=== PATIENT | male | born 1955 | race Caucasian/White ===

== ENCOUNTER 2023-10-18 13:55 | Observation (INO) | payer OTHER, SELFPAY ==
[2023-10-18] VITALS (9 sets, daily range): BP systolic 64–167; BP diastolic 49–81; PULSE 60–82; RESP 16–19; TEMP 36.5–36.9; O2SAT 92–98; BMI 28.8
--- NOTE | 2023-10-18 14:15 | XRR_ITS ---
PROCEDURE INFORMATION: Exam: XR Chest Exam date and time: 10/18/2023 2:51 PM Age: 67 years old Clinical indication: Dyspnea; Patient HX: PT reporting headache, dizziness, fall, unstable gait. PT reporting this has happened several times before but is visiting family and they made him come in. ; Additional info: Dyspnea/cough TECHNIQUE: Imaging protocol: Radiologic exam of the chest. Views: 1 view. COMPARISON: No relevant prior studies available. FINDINGS: Lungs: No focal consolidation. Pleural spaces: No evidence of pneumothorax. No evidence of pleural effusion. Heart/Mediastinum: Cardiomediastinal silhouette is within normal limits. Bones/joints: No evidence of acute osseous abnormality. XR/XR chest 1V portable [id number] IMPRESSION: 1. No acute cardiopulmonary abnormality.
--- NOTE | 2023-10-18 14:16 | ECG_ITS ---
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 Measurements Intervals [place] Rate: 61 P: 71 VT: 211 QRS: 1 QRSD: 103 T: 35 QT: 400 QTc: 404 Interpretive Statements SINUS RHYTHM WITH FIRST DEGREE AV BLOCK Compared to ECG 10/18/2023 16:21:58 No significant changes Electronically Signed On 10-19-2023 20:47:51 CDT by Geovany Fox M.D. [email or web address]/store/[id number]
--- NOTE | 2023-10-18 14:22 | ED_ITS ---
HPI - Neuro Symptoms/Deficit 2 General: Chief Complaint: Neuro Symptoms/Deficit Stated Complaint: dizziness, headache, weakness Time Seen by Provider: 10/18/23 14:15 Source: patient Mode of arrival: ambulatory History of Present Illness: 67-year-old male presents emergency room with complaints of intermittent episodes of headache dizziness falling unstable gait is been going on for a year he was seen by his primary care doctor at the [facility] on time he was even placed on observation in the hospital does not sound from his descriptions of any particular diagnosis therapy. Patient is visiting in town and the family and began to have another 1 of these episodes and came in to be evaluated. He also reports multiple falls associated with this. Onset (ago): minute(s) Relieving factors: none Exacerbating factors: none Associated symptoms: Deny chest pain, cough, diaphoresis, fevers/chills, headache(s), anorexia, malaise, nausea, seizures, short of breath, syncope, tingling, vertigo, vomiting or weakness Treatments Prior to Arrival: none Review of Systems 2 Const: Denies: malaise or diaphoresis Card: Denies: chest pain or syncope Resp: Denies: dyspnea GI: Denies: nausea or vomiting : Denies: dysuria, urinary frequency or urinary urgency Musc: Denies: neck pain or back pain Skin/Breast: Denies: rash Neuro: Denies: headache(s) or vertigo NIH stroke score 2 NIHSS: Level Of Consciousness - 1a: 0 Level Of Consciousness Questions - 1b: Both Correct Level Of Consciousness Commands - 1c: Both Correct Best Gaze - 2: Normal Visual Andrade - 3: No Visual Loss Facial Palsy - 4: N ormal Motor Arm Right - 5: No Drift Motor Arm Left - 5: No Drift Motor Leg Right - 6: No Drift Motor Leg Left - 6: No Drift Limb Ataxia - 7: A bsent Sensory - 8: Normal Best Language - 9: No Aphasia Dysarthia - 10: Normal Extinction And Inattention - 11: 0 Score: Total Score: 0 Physical Exam 2 Const: COMMON NORMALS: no acute distress GENERAL APPEARANCE: cooperative and comfortable ORIENTATION/CONSCIOUSNESS: Yes awake, Yes oriented to person, Yes oriented to place and Yes oriented to time HENMT: COMMON NORMALS: normocephalic, atraumatic and hearing grossly normal bilaterally HEAD & SCALP: normocephalic and atraumatic Resp: COMMON NORMALS: normal respiratory effort, No retractions, No use of accessory muscles and clear to auscultation bilaterally AUSCULTATION: clear to auscultation bilaterally Cardio: COMMON NORMALS: regular rate, regular rhythm and No murmurs present (Cardio) RATE: regular rate RHYTHM: regular rhythm GI: COMMON NORMALS: Soft to palpation and No hepatosplenomegaly present A USCULTATION: Yes normoactive bowel sounds PALPATION: Yes Soft to palpation, No Tenderness to palpation present (GI), No Guarding due to palpation present (GI) and Yes No hepatosplenomegaly present Extremity: COMMON NORMALS: normal to inspection, capillary refill normal, no clubbing, cyanosis or edema, no calf tenderness and no pedal edema Neuro: SENSORIUM/ORIENTATION: Yes oriented to person, Yes oriented to place and Yes oriented to time Skin: COMMON NORMALS: no rashes or lesions noted GENERAL SKIN EXAM: no rashes or lesions noted Course 2 Vital Signs: Vital signs: Vital Signs Temperature 98.5 F 10/18/23 14:08 Pulse Rate 71 10/18/23 17:10 Respiratory Rate 17 10/18/23 14:08 Blood Pressure 116/61 10/18/23 17:10 Pulse Oximetry 97 10/18/23 17:10 Oxygen Delivery Me thod Room Air 10/18/23 17:10 MDM - Neuro Symptoms/Deficit Medical Decision Making Patient presented profoundly hypotensive did respond to fluids. However he still did not have a explanation for his syncope. Some going on for some time. Will place patient on observation continue fluids discussed with hospitalist orders written. EKG does not show any acute ST changes labs and imaging reviewed as found in the chart discussed with family and patient Medical Records I reviewed the patient's medical records. Lab Data I reviewed the patient's lab results. 10/18/23 14:50 10/18/23 14:50 Radiology Impressions Chest X-Ray 10/18/23 14:15 IMPRESSION: 1. No acute cardiopulmonary abnormality. Head CT 10/18/23 15:24 IMPRESSION: 1. No acute intracranial abnormality. Laboratory Results WBC 8.28 10^3/uL (3.29-11.43) 10/18/23 14:50 RBC 4.52 10^6/uL (3.85-5.65) 10/18/23 14:50 Hgb 14.50 g/dL (11.27-16.99) 10/18/23 14:50 Hct 43.6 % (37-53) 10/18/23 14:50 MCV 96.5 fl (82-101) 10/18/23 14:50 MCH 32.1 pg (27-33) 10/18/23 14:50 MCHC 33.3 g/dL (30-55) 10/18/23 14:50 RDW 12.9 % (12.1-15.1) 10/18/23 14:50 Plt Count 201 10^3/cmm (157-399) 10/18/23 14:50 MPV 9.2 fL (7.4-10.4) 10/18/23 14:50 Neut % (Auto) 77.0 % 10/18/23 14:50 Lymph % (Auto) 11.7 % 10/18/23 14:50 Duchesne % (Auto) 9.3 % 10/18/23 14:50 Eos % (Auto) 1.3 % 10/18/23 14:50 Baso % (Auto) 0.5 % 10/18/23 14:50 Neut # (Auto) 6.37 10^3/uL (1.8-7.7) 10/18/23 14:50 Lymph # (Auto) 1.0 10^3/uL (0.8-4.8) 10/18/23 14:50 Duchesne # (Auto) 0.8 10^3/uL (0.2-0.9) 10/18/23 14:50 Eos # (Auto) 0.1 10^3/uL (0.0-0.8) 10/18/23 14:50 Baso # (Auto) 0.0 10^3/uL (0.0-0.1) 10/18/23 14:50 Nucleated RBC % (auto) 0 % 10/18/23 14:50 Nucleated RBCs # 0.0 /100WBC 10/18/23 14:50 Specimen Type Arterial 10/18/23 14:51 Sample Site Radial, right 10/18/23 14:51 ABG pH 7.39 (7.35-7.45) 10/18/23 14:51 ABG pCO2 37.8 mmHg (35-45) 10/18/23 14:51 ABG pO2 67.9 mmHg (80.0-100.0) L 10/18/23 14:51 ABG PO2/FiO2 Ratio 0 10/18/23 14:51 ABG HCO3 22.9 mmol/L (22-26) 10/18/23 14:51 ABG O2 Saturation 92.0 10/18/23 14:51 ABG Base Excess -1.7 mmol/L (-2.0-2.0) 10/18/23 14:51 Carlos Alberto Test Pos 10/18/23 14:51 A-a O2 Gradient 4.5 mmHg (5-10) L 10/18/23 14:51 Hematocrit 41.6 % (42-52) L 10/18/23 14:51 Hgb O2 Saturation 91.0 % (95-100) L 10/18/23 14:51 Carboxyhemoglobin 0.5 %THgb (0.4-20.1) 10/18/23 14:51 Methemoglobin 0.7 % (0.4-1.5) 10/18/23 14:51 Total Hemoglobin 13.6 g/dL (14-18) L 10/18/23 14:51 Sodium 141.0 mmol/L (131-143) 10/18/23 14:51 Potassium 3.8 mmol/L (3.5-5.0) 10/18/23 14:51 Glucose 191.0 mg/dL (70-115) H 10/18/23 14:51 Ionized Calcium 1.3 mmol/L (1.1-1.4) 10/18/23 14:51 O2 Delivery Device Room air 10/18/23 14:51 FiO2 21.0 % 10/18/23 14:51 Molded Frames Assembler ID Monro 10/18/23 14:51 Sodium 140 mmol/L (136-145) 10/18/23 14:50 Sodium Cancelled 10/18/23 14:50 Potassium 3.8 mmol/L (3.5-5.1) 10/18/23 14:50 Potassium Cancelled 10/18/23 14:50 Chloride 101 mmol/L (98-107) 10/18/23 14:50 Chloride Cancelled 10/18/23 14:50 Carbon Dioxide 24 mmol/L (22-29) 10/18/23 14:50 Carbon Dioxide Cancelled 10/18/23 14:50 Anion Gap 18.8 (5-19) 10/18/23 14:50 Anion Gap Cancelled 10/18/23 14:50 BUN 29 mg/dL (8-23) H 10/18/23 14:50 BUN Cancelled 10/18/23 14:50 Creatinine 1.4 mg/dL (0.7-1.2) H 10/18/23 14:50 Creatinine Cancelled 10/18/23 14:50 GFR Calculation 50.7 mL/min (90-130) L 10/18/23 14:50 GFR Calculation Cancelled 10/18/23 14:50 Glucose 180 mg/dL (65-115) H 10/18/23 14:50 Glucose Cancelled 10/18/23 14:50 POC Glucose 171 mg/dL (70-110) H 10/18/23 14:49 Calculated Osmolality 300 mOsm/kg (285-295) H 10/18/23 14:50 Calculated Osmolality Cancelled 10/18/23 14:50 Lactic Acid 2.1 mmol/L (0.5-2.2) 10/18/23 14:50 Lactic Acid (Sepsis) 1.6 mmol/L (0.5-2.2) 10/18/23 16:53 Calcium 9.7 mg/dL (8.5-10.5) 10/18/23 14:50 Calcium Cancelled 10/18/23 14:50 Magnesium 1.8 mg/dL (1.7-2.3) 10/18/23 14:50 Magnesium Cancelled 10/18/23 14:50 Total Bilirubin 0.5 mg/dL (0.15-1.2) 10/18/23 14:50 Total Bilirubin Cancelled 10/18/23 14:50 AST 20 U/L (0-40) 10/18/23 14:50 AST Cancelled 10/18/23 14:50 ALT 17 U/L (0-41) 10/18/23 14:50 ALT Cancelled 10/18/23 14:50 Alkaline Phosphatase 101 U/L (40-130) 10/18/23 14:50 Alkaline Phosphatase Cancelled 10/18/23 14:50 Troponin T Baseline 16 ng/L (0-15) H 10/18/23 14:50 Troponin T 120 Minute 11.71 ng/L (0-15) 10/18/23 16:53 Delta Troponin T -4.29 ABS# (0-10) L 10/18/23 16:53 Total Protein 8.4 g/dL (6.6-8.7) 10/18/23 14:50 Total Protein Cancelled 10/18/23 14:50 Albumin 4.6 g/dL (3.5-5.2) 10/18/23 14:50 Albumin Cancelled 10/18/23 14:50 Globulin 3.8 g/dL (1.3-4.6) 10/18/23 14:50 Globulin Cancelled 10/18/23 14:50 Lipase 53 U/L (13-60) 10/18/23 14:50 Lipase Cancelled 10/18/23 14:50 Urine Color Yellow (Yellow) 10/18/23 14:50 Urine Appearance Clear (CLEAR) 10/18/23 14:50 Urine pH 5 (5-7) 10/18/23 14:50 Ur Specific [place] 1.010 (1.005-1.030) 10/18/23 14:50 Urine Protein Neg (Negative) 10/18/23 14:50 Urine Glucose (UA) 4+ (Normal) H 10/18/23 14:50 Urine Ketones 1+ (Negative) H 10/18/23 14:50 Urine Blood Neg (Negative) 10/18/23 14:50 Urine Nitrate Negative (Negative) 10/18/23 14:50 Urine Bilirubin 1+ (Negative) H 10/18/23 14:50 Urine Urobilinogen 1 mg/dL (Negative) H 10/18/23 14:50 Ur Leukocyte Esterase Negative (Negative) 10/18/23 14:50 Serum Ketones Negative (Negative) 10/18/23 14:50 All radiology interpretation(s) finalized by discharge Discharge Plan Discharge Patient Disposition: Placed in Observation Clinical Impression: Syncope, Hypotension Condition: Stable Prescriptions: No Action Lipitor 80 mg Tablet 40 mg PO BEDTIME lamotrigine 200 mg Tablet 100 mg PO BEDTIME Zoloft 100 mg Tablet 200 mg PO QAM Vitamin B-12 1,000 mcg Tablet 1,000 mcg PO QAM Aspir-81 81 mg Tablet,Delayed Release (Dr/Ec) 81 mg PO QAM Tylenol Ex Str Rapid Release 500 mg Tablet 1,000 mg PO BID terazosin 2 mg Capsule 4 mg PO BEDTIME amlodipine 10 mg Tablet 10 mg PO BEDTIME Prilosec 20 mg Capsule,Delayed Release(Dr/Ec) 20 mg PO BID losartan 100 mg Tablet 100 mg PO QAM metformin 500 mg Tablet Extended Release 24 Hr 1,000 mg PO BID magnesium 200 mg Tablet 400 mg PO DAILY Cinnamon 500 mg Capsule 1,000 mg PO DAILY Vitamin D3 25 mcg (1,000 unit) Tablet 25 mcg PO QAM Centrum Silver Men [id number] mcg Tablet 1 tab PO QAM empagliflozin 25 mg Tablet 12.5 mg PO QAM Ozempic 0.25 mg or 0.5 mg (2 mg/3 mL) Pen Injector 0.5 mg SUBCUT Q7D Coding Level 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
--- NOTE | 2023-10-18 14:52 | PC.PHAR ---
Addendum entered by Rena Rodas 10/18/23 15:48: medications entered are from the med bottles that the pts daughter brought in -pts family states the pt hasnt had his ozempic since 10/01/23 states the pt forgot it before they traveled here Original Note: pt and pts states the pts daughter ran to the house to bring pts meds in
[2023-10-18 14:55] LABS: Glucose Point of Care 171 mg/dL (70-110)
[2023-10-18] MEDS: sodium chloride 0.9% 1,000 ML 999 ML IV (14:56)
[2023-10-18 14:57] LABS: Basophils % 0.5 %; Eosinophils # 0.1 10^3/uL (0.0-0.8); Eosinophils % 1.3 %; Hematocrit 43.6 % (37-53); Lymphocytes % 11.7 %; Mean Corpuscular HGB Conc 33.3 g/dL (30-55); Mean Corpuscular Hemoglobin 32.1 pg (27-33); Mean Corpuscular Volume 96.5 fl (82-101); Mean Platelet Volume 9.2 fL (7.4-10.4); Monocytes # 0.8 10^3/uL (0.2-0.9); Monocytes % 9.3 %; Neutrophils # 6.37 10^3/uL (1.8-7.7); Nucleated Red Blood Cells % 0 %; Platelet Count 201 10^3/cmm (157-399); Red Blood Count 4.52 10^6/uL (3.85-5.65); Red Cell Distribution Width 12.9 % (12.1-15.1); White Blood Count 8.28 10^3/uL (3.29-11.43)
[2023-10-18 15:04] LABS: ABG PCO2 37.8 mmHg (35-45); ABG PH Result 7.39 (7.35-7.45); Alveolar-Arterial Oxygen Gradi 4.5 mmHg (5-10); Arterial Blood Gas Hematocrit 41.6 % (42-52); Base Excess ABG -1.7 mmol/L (-2.0-2.0); Blood Gas Allen Test Pos; Blood Gas Operator Identificat MONRO; Blood Gas Sample Site Radial, right; Blood Gas Sample Type Arterial; Carboxyhemoglobin 0.5 %THgb (0.4-20.1); HCO3 ABG 22.9 mmol/L (22-26); Ionized Calcium Level - ABG 1.3 mmol/L (1.1-1.4); Methemoglobin 0.7 % (0.4-1.5); Oxygen Device ROOM AIR; PO2 ABG 67.9 mmHg (80.0-100.0); PO2 FiO2 Ratio Arterial Blood 0; Potassium Level - ABG 3.8 mmol/L (3.5-5.0); Total Hemoglobin 13.6 g/dL (14-18)
[2023-10-18 15:11] LABS: Add Urine Microscopic? NO; Charge for UA Resulting for Rev
[2023-10-18 15:13] LABS: Lactic Sepsis W/Reflex 2.1 mmol/L (0.5-2.2)
--- NOTE | 2023-10-18 15:24 | CTR_ITS ---
PROCEDURE INFORMATION: Exam: CT Head Without Contrast Exam date and time: 10/18/2023 3:33 PM Age: 67 years old Clinical indication: Injury or trauma; Fall; Blunt trauma (contusions or hematomas); Dizziness; Additional info: Frequent falls/dizziness TECHNIQUE: Imaging protocol: Computed tomography of the head without contrast. Radiation optimization: All CT scans at this facility use at least one of these dose optimization techniques: automated exposure control; mA and/or kV adjustment per patient size (includes targeted exams where dose is matched to clinical indication); or iterative reconstruction. COMPARISON: No relevant prior studies available. RADIATION DOSE METRICS: Total DLP (mGy-cm): 1092.03 FINDINGS: Brain: No evidence of intra-axial or extra-axial hemorrhage. No mass effect or midline shift. Wolfe-white differentiation is maintained. Basilar cisterns are patent. Cerebral ventricles: No hydrocephalus. Paranasal sinuses: The visualized paranasal sinuses are well aerated. Mastoid air cells: The visualized mastoids and middle ears are clear. Bones/joints: The visualized calvarium and bony orbits are intact. Soft tissues: No gross soft tissue abnormality. CT/CT head wo con* [id number] IMPRESSION: 1. No acute intracranial abnormality.
[2023-10-18 15:25] LABS: Troponin(5th) Baseline 16 ng/L (0-15)
[2023-10-18 15:33] LABS: Ketone (Acetest) Serum Negative (Negative)
[2023-10-18 15:34] LABS: Bilirubin Urine 1+ (Negative); Blood Urine Neg (Negative); Glucose Urine UA 4+ (Normal); Ketones Urine 1+ (Negative); Leukocyte Esterase Urine Negative (Negative); Nitrate Urine Negative (Negative); Protein Urine Neg (Negative); Urine Appearance Clear (CLEAR); Urine Color Yellow (Yellow); Urobilinogen Urine 1 mg/dL (Negative); pH Urine 5 (5-7)
[2023-10-18 15:59] LABS: Alanine Aminotransferase 17 U/L (0-41); Albumin Level 4.6 g/dL (3.5-5.2); Alkaline Phosphatase 101 U/L (40-130); Anion Gap 18.8 (5-19); Aspartate Amino Transferase 20 U/L (0-40); Blood Urea Nitrogen 29 mg/dL (8-23); Calcium 9.7 mg/dL (8.5-10.5); Carbon Dioxide 24 mmol/L (22-29); Chloride 101 mmol/L (98-107); Globulin 3.8 g/dL (1.3-4.6); Glomerular Filtration Rate 50.7 mL/min (90-130); Glucose 180 mg/dL (65-115); Lipase 53 U/L (13-60); Magnesium 1.8 mg/dL (1.7-2.3); Osmolality Calculated 300 mOsm/kg (285-295); Potassium 3.8 mmol/L (3.5-5.1); Sodium 140 mmol/L (136-145); Total Bilirubin 0.5 mg/dL (0.15-1.2); Total Protein 8.4 g/dL (6.6-8.7)
[2023-10-18 16:00] LABS: Creatinine Clr Calc Pharmacy 58.9275
--- NOTE | 2023-10-18 16:21 | ECG_ITS ---
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 Measurements Intervals [place] Rate: 66 P: 73 UT: 215 QRS: 24 QRSD: 102 T: 40 QT: 387 QTc: 407 Interpretive Statements SINUS RHYTHM WITH FIRST DEGREE AV BLOCK No previous ECG available for comparison Electronically Signed On 10-19-2023 20:55:17 CDT by Geovany Fox M.D. [email or web address] [facility] [email or web address] meridianUniSmartmorrow county hospital.[employer]/store/OM/[id number]
[2023-10-18 16:41] LABS: Reflex Lactate Order REFLEX LACTIC ORDERD
[2023-10-18] MEDS: sodium chloride 0.9% 500 ML 999 ML IV (16:43)
[2023-10-18 17:15] LABS: Lactic Acid level (Lactate) 1.6 mmol/L (0.5-2.2)
[2023-10-18 17:16] LABS: Troponin 5 2HR 11.71 ng/L (0-15)
[2023-10-18 17:19] LABS: Troponin 5 2HR Delta -4.29 ABS# (0-10)
--- NOTE | 2023-10-18 17:33 | P.HP_ITS ---
Providers/Chief Complaint 2 Chief Complaint: dizziness, headache, weakness History of Present Illness Mr Billy Orlando is a 67 year old male with past medical history of depression, hypertension, diabetes type 2 who presents for further evaluation of dizziness and feeling unstable. Patient reports that he has been having these symptoms recurrently since the past 1 year. Current symptoms began today, described as dizziness and feeling unstable. He denies fever, chills, chest pain, palpitations, shortness of breath, abdominal pain, nausea, vomiting , or any other symptoms. He reports that he sometimes has diarrhea on and off. Patient also reports he has been seen at the [facility] for similar symptoms. He is currently on Ozempic for diabetes and states he has lost a lot of weight in the past year. In the ER, patient was noted to be hypotensive with his blood pressure as low as 60's/40's. He received 2 L of normal saline bolus in the ER and had improvement in his blood pressure and symptoms. CT of the head did not show any acute process. EKG was negative for STEMI. Labs showed no significant abnormalities. Review of Systems 2 General: Reports: 10 or more systems reviewed and unremarkable except in HPI and below Const: Denies: malaise or diaphoresis Eyes: Reports: other (Patient denies vision loss) Card: Denies: chest pain or syncope Resp: Denies: dyspnea GI: Denies: nausea or vomiting : Denies: dysuria, urinary frequency or urinary urgency Musc: Denies: neck pain or back pain Skin/Breast: Denies: rash Neuro: Denies: headache(s) or vertigo Medications/Allergies Home Medications Medication Instructions Recorded Confirmed Last Taken Type acetaminophen 500 mg tablet 1,000 mg PO BID 10/18/23 10/18/23 Unknown History amlodipine 10 mg tablet 10 mg PO BEDTIME 10/18/23 10/18/23 Unknown History aspirin 81 mg tablet,delayed 81 mg PO QAM 10/18/23 10/18/23 Unknown History release atorvastatin 80 mg tablet (Lipitor) 40 mg PO BEDTIME 10/18/23 10/18/23 Unknown History cholecalciferol (vitamin D3) 25 25 mcg PO QAM 10/18/23 10/18/23 Unknown History mcg (1,000 unit) tablet (Vitamin D3) cinnamon bark 500 mg capsule 1,000 mg PO DAILY 10/18/23 10/18/23 Unknown History (Cinnamon) cyanocobalamin (vitamin B-12) 1,000 mcg PO QAM 10/18/23 10/18/23 Unknown History 1,000 mcg tablet (Vitamin B-12) empagliflozin 25 mg tablet 12.5 mg PO QAM 10/18/23 10/18/23 Unknown History lamotrigine 200 mg tablet 100 mg PO BEDTIME 10/18/23 10/18/23 Unknown History losartan 100 mg tablet 100 mg PO QAM 10/18/23 10/18/23 Unknown History magnesium 200 mg tablet 400 mg PO DAILY 10/18/23 10/18/23 Unknown History metformin 500 mg tablet,extended 1,000 mg PO BID 10/18/23 10/18/23 Unknown History release 24 hr fphrgxzw-rn-vypnk 300 mcg-K 60 1 tab PO QAM 10/18/23 10/18/23 Unknown History mcg-lycop 600 mcg-lutein 300 mcg tablet (Centrum Silver Men) omeprazole 20 mg capsule,delayed 20 mg PO BID 10/18/23 10/18/23 Unknown History release semaglutide 0.25 mg or 0.5 mg (2 0.5 mg SUBCUT Q7D 10/18/23 10/18/23 10/01/23 History mg/3 mL) subcutaneous pen injector (Ozempic) sertraline 100 mg tablet (Zoloft) 200 mg PO QAM 10/18/23 10/18/23 Unknown History terazosin 2 mg capsule 4 mg PO BEDTIME 10/18/23 10/18/23 Unknown History Allergies Allergy/AdvReac Type Severity Reaction Status Date / Time medication for foot fungus Allergy Mild ALGY-Rash Uncoded 10/18/23 14:12 PFSH Acute 2 PFSH: Medical History (Updated 10/18/23 @ 18:23 by Raf Campa MD) Type 2 diabetes mellitus Hypertension Depression Surgical History (Updated 10/18/23 @ 18:15 by Raf Campa MD) H/O right nephrectomy Social History (Updated 10/18/23 @ 18:16 by Raf Campa MD) Smoking and tobacco/nicotine status: never used tobacco/nicotine Alcohol intake: never Substance/Drug Use: never Vitals/I&O/Wt Last Vital Signs Temp 98.5 F 10/18/23 14:08 Pulse 71 10/18/23 17:10 Resp 17 10/18/23 14:08 BP 116/61 10/18/23 17:10 Pulse Ox 97 10/18/23 17:10 O2 Del Method Room Air 10/18/23 17:10 10/18/23 10/18/23 10/18/23 06:59 14:59 22:59 Intake Total 1000 / 1000 Balance 1000 / 1000 Weight last 48 hrs Weight 91.172 kg Physical Exam 2 Const: COMMON NORMALS: no acute distress, patient oriented x3 and alert HENMT: COMMON NORMALS: normocephalic, atraumatic, external ears normal, Normal external nose present, moist oral mucous membranes and oropharynx normal Neck/C-Spine: COMMON NORMALS: full ROM, no lymphadenopathy and no JVD Chest: COMMONS NORMALS: normal inspection of the chest Resp: COMMON NORMALS: normal respiratory effort and clear to auscultation bilaterally AUSCULTATION: clear to auscultation bilaterally OTHER: No wheezes or craCkles Cardio: COMMON NORMALS: no JVD, regular rate, regular rhythm, S1 normal heart sound present and S2 normal heart sound present GI: COMMON NORMALS: Normal to inspection, nondistended, normoactive bowel sounds present, Soft to palpation and non-tender : OTHER: Differed Extremity: COMMON NORMALS: normal to inspection and no pedal edema Neuro: COMMON NORMALS: patient oriented x3 SENSORIUM/ORIENTATION: Yes alert OTHER: No gross focal deficits Skin: OTHER: Scratch guajardo BL legs Data 10/18/23 14:50 10/18/23 14:50 A&P Assessment and plan (1) Hypotension: (2) Dizziness: Plan #Dizziness #Hypotension -Patient presented for further evaluation of dizziness and was found to be hypotensive in the ER. -Dizziness likely due to hypotension, etiology of hypotension currently not very clear. No focal neurologic deficits to suggest acute CVA. Symptoms have been going on /off for the past year. Patient does have a history of hypertension and is on antihypertensives. He says symptoms usually occur several hours after taking his antihypertensives . He currently has no signs of an acute ongoing infectious process. He has no leukocytosis. Chest x-ray is normal. UA is not significant for UTI. -Hypotension may be in the setting of antihypertensive use, patient reports that he recently has lost a lot of weight since being on Ozempic for diabetes -Blood pressure currently improved after IV fluids received in the ER -Check TTE -Will give additional 1 L of IV fluids at 100 cc/h -Telemetry monitoring -Supportive care -Will check procalcitonin # History of hypertension -Hold antihypertensives for now # Type 2 diabetes -Glucose checks, continue metformin, will also start sliding scale insulin # History of depression -Continue chronic medications Attestations 2 Medical Necessity Statement*: Patient will be admitted to observation, for additional IV fluids,close monitoring , echo and to rule out any occult infection Coding Level of Care Code Acute Code for Chg Fwd Diagnoses Hypotension I95.9 Dizziness R42
--- NOTE | 2023-10-18 17:40 | PC.NURSE ---
PATIENT AND FAMILY STATES THAT PATIENT HAS LOST 60 LBS OVER THE PAST YEAR BUT HAS NOT HAD A MEDICATION ADJUSTMENT IN HIS BLOOD PRESSURE MEDICATION AND THEY FEEL THAT PATIENT MAY NEED EVALUATED FOR THIS.
[2023-10-18] MEDS: pantoprazole DR 40 mg Tablet PO (19:08)
[2023-10-18] MEDS: sodium chloride 0.9% 1,000 ML 100 ML IV (19:08)
[2023-10-18] MEDS: metformin XR 500 MG Tablet 1000 MG PO (19:12)
[2023-10-18] MEDS: atorvastatin 40 mg Tablet PO (19:14)
[2023-10-18] MEDS: lamoTRIgine 100 mg Tablet PO (19:15)
[2023-10-18 19:21] LABS: Procalcitonin 0.21 ng/mL (0-0.5)
--- NOTE | 2023-10-18 20:23 | ECG_ITS ---
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 Measurements Intervals [place] Rate: 64 P: 69 [place]: 215 QRS: 16 QRSD: 106 T: 33 QT: 394 QTc: 407 Interpretive Statements SINUS RHYTHM WITH FIRST DEGREE AV BLOCK Compared to ECG 10/18/2023 18:47:39 No significant changes Electronically Signed On 10-19-2023 20:56:20 CDT by Geovany Fox M.D. [email or web address] hospitalThe University of Akronohiohealth grady memorial hospitalPlasticity Labs/store/OM/[id number]
[2023-10-18 21:17] LABS: Troponin 5 6HR 9.89 ng/L (0-15)
[2023-10-18 21:19] LABS: Troponin 5 6HR Delta -6.11 ng/L (0-12)
[2023-10-18 21:21] LABS: Glucose Point of Care 127 mg/dL (70-110)
[2023-10-18] MEDS: acetaminophen 325 mg Tablet 650 MG PO (23:43)
[2023-10-19] VITALS (7 sets, daily range): BP systolic 155–177; BP diastolic 75–95; PULSE 59–75; RESP 18–21; TEMP 36.6–37.1; O2SAT 94–98
[2023-10-19 04:41] LABS: Basophils % 0.5 %; Eosinophils # 0.3 10^3/uL (0.0-0.8); Eosinophils % 4.4 %; Hematocrit 37.5 % (37-53); Lymphocytes # 1.4 10^3/uL (0.8-4.8); Lymphocytes % 24.2 %; Mean Corpuscular HGB Conc 33.3 g/dL (30-55); Mean Corpuscular Hemoglobin 32.1 pg (27-33); Mean Corpuscular Volume 96.4 fl (82-101); Mean Platelet Volume 9.1 fL (7.4-10.4); Monocytes # 0.7 10^3/uL (0.2-0.9); Neutrophils # 3.52 10^3/uL (1.8-7.7); Neutrophils % 59.4 %; Nucleated Red Blood Cells % 0 %; Platelet Count 162 10^3/cmm (157-399); Red Blood Count 3.89 10^6/uL (3.85-5.65); Red Cell Distribution Width 13.1 % (12.1-15.1); White Blood Count 5.92 10^3/uL (3.29-11.43)
[2023-10-19 05:02] LABS: Anion Gap 12.9 (5-19); Blood Urea Nitrogen 24 mg/dL (8-23); Calcium 8.8 mg/dL (8.5-10.5); Carbon Dioxide 24 mmol/L (22-29); Chloride 110 mmol/L (98-107); Glomerular Filtration Rate 84.4 mL/min (90-130); Glucose 124 mg/dL (65-115); Osmolality Calculated 301 mOsm/kg (285-295); Potassium 3.9 mmol/L (3.5-5.1); Sodium 143 mmol/L (136-145)
[2023-10-19] MEDS: sertraline 100 mg Tablet 200 MG PO (05:06)
[2023-10-19] MEDS: aspirin 81 mg EC Tablet PO (05:06)
[2023-10-19] MEDS: sodium chloride 0.9% 1,000 ML 100 ML IV (05:07)
--- NOTE | 2023-10-19 06:00 | USCV_ITS ---
Billy Orlando Age: 67 Gender: M : 1955 Exam Date: 10/19/2023 09:06 Ordering Phys: Raf Campa MD Technologist: Bernard Becerra Exam Location: [facility] [place] Indication: hypotension BP: 155 / 75 HR: 59 Rhythm: Sinus Technical Quality: Adequate MEASUREMENTS (Male / Female) Normal Values 2D ECHO LV Diastolic Diameter PLAX 4.2 cm 4.2 - 5.9 / 3.9 - 5.3 cm IVS Diastolic Thickness 1.6 cm 0.6 - 1.0 / 0.6 - 0.9 cm LVPW Diastolic Thickness 2.0 cm 0.6 - 1.0 / 0.6 - 0.9 cm LVOT Diameter 2.1 cm LV Ejection Fraction MOD 2C 65.6 % LV Ejection Fraction 2C AL 66.1 % LA Diameter 3.9 cm RA Systolic Volume 4C AL 54.6 ml RA Systolic Volume 4C MOD 56.1 ml LA Sys Volume AL 78.8 cm cubed LA Sys Volume Index AL 36.7 cm cubed/m squared Aorta at Sinotubular Diameter 2.5 cm IVC Diameter 2.0 cm M-MODE LA Ao Ratio MM 1.6 MV E Point Septal Separation 1.2 cm AV Cusp Separation MM 2.1 cm DOPPLER AV Peak Velocity 162.0 cm/s LVOT Peak Velocity 108.0 cm/s AV Area Cont Eq vti 2.8 cm squared AV Area Cont Eq pk 2.3 cm squared MV Peak Velocity 103.0 cm/s MV Area PHT 4.6 cm squared Mitral E to A Ratio 0.9 TV Peak Velocity 189.0 cm/s TR Peak Velocity 210.0 cm/s TR Peak Gradient 17.6 mmHg TR Mean Velocity 168.0 cm/s TR Mean Gradient 12.0 mmHg TR Velocity Time Integral 53.3 cm PV Peak Velocity 91.8 cm/s RV Ejection Time 0.3 s FINDINGS Left Ventricle Normal left ventricular size and systolic function, EF 66%. No regional wall motion abnormalities. Mild left ventricular hypertrophy. Grade I/IV diastolic dysfunction (abnormal relaxation filling pattern), normal to mildly elevated filling pressures. Right Ventricle The right ventricle is normal in size and function. Right Atrium The right atrium is normal in size. Left Atrium Moderately increased left atrial size. The left atrial stroke- volume index was 37.6 mL/m squared Mitral Valve Trace mitral valve regurgitation. Aortic Valve No gross abnormalities noted Tricuspid Valve No gross abnormalities noted Pulmonic Valve Trace pulmonary valve regurgitation. Pericardium Normal pericardium without effusion. Aorta Normal ascending aorta dimension. IVC The inferior vena cava appears normal. CONCLUSIONS Normal left ventricular size and systolic function, EF 66%. No regional wall motion abnormalities. Mild left ventricular hypertrophy. Grade I/IV diastolic dysfunction (abnormal relaxation filling pattern), normal to mildly elevated filling pressures. Moderately increased left atrial size. The left atrial stroke- volume index was 37.6 mL/m squared. Trace pulmonary valve regurgitation. There is no pericardial effusion. There are no intracardiac masses. No similar previous studies are available for comparison Dr Geovany Fox MD [facility] (Electronically Signed) Final Date: 19 October 2023 14:11 S
[2023-10-19 06:21] LABS: Glucose Point of Care 140 mg/dL (70-110)
[2023-10-19] MEDS: enoxaparin 40 mg/0.4 mL Syringe SUBCUT (08:51)
[2023-10-19] MEDS: pantoprazole DR 40 mg Tablet PO (08:52)
[2023-10-19] MEDS: amlodipine 10 mg Tablet 5 MG PO (08:52)
[2023-10-19] MEDS: metformin XR 500 MG Tablet 1000 MG PO (09:51)
[2023-10-19 11:55] LABS: Glucose Point of Care 119 mg/dL (70-110)
--- NOTE | 2023-10-19 15:48 | PM.DCS ---
Discharge Providers Date of Admission: 10/18/23 17:06 Date of Discharge: October 19, 2023 Attending Provider at Admission: Raf Campa MD Attending Provider at Discharge: Raf Campa MD Diagnoses at Discharge Discharge Diagnosis (1) Hypotension: Status: Acute (2) Dizziness: Status: Acute Reason for Visit Reason for Visit: dizziness, headache, weakness Hospital Course Hospital Course In summary, Mr Billy Orlando is a 67 year old male with past medical history of depression, hypertension, diabetes type 2 who presented for further evaluation of recurrent dizziness and feeling unstable. In the ER, patient was noted to be hypotensive with his blood pressure as low as 60's/40's. He received 2 L of normal saline bolus in the ER and had improvement in his blood pressure and symptoms. CT of the head did not show any acute process. EKG was negative for STEMI. He was admitted for observation. Dizziness likely due to hypotension, etiology of hypotension currently not very clear, but thought to be due to antihypertensive use after recent weight loss while on ozempic. There was no focal neurologic deficit to suggest acute CVA. He had no signs of an active ongoing infectious process. Symptoms have been going on /off for the past year . His symptoms improved with IVF. Echo showed normal EF, no WMAs, diastolic dysfunction. Patient is on amlodipine and lisinopril chronically. Lisinopril will be held at discharge. Patient will continue amlodipine. He will continue to check his blood pressure daily and follow his primary care provider for further evaluation and management. He will also be referred to cardiology outpatient. Physical Exam Const: COMMON NORMALS: no acute distress, patient oriented x3 and alert HENMT: COMMON NORMALS: normocephalic, atraumatic, external ears normal, Normal external nose present, moist oral mucous membranes and oropharynx normal HEAD & SCALP: normocephalic and atraumatic NOSE: Normal external nose present EXTERNAL EAR: Yes external ears normal Eye: COMMON NORMALS: Equal, round and reactive pupils present, EOMs intact bilaterally, conjunctivae normal and no scleral icterus CONJUNCTIVA: Yes conjunctivae normal PUPIL: Yes Equal, round and reactive pupils present Neck/C-Spine: COMMON NORMALS: full ROM, no lymphadenopathy and no JVD Chest: COMMONS NORMALS: normal inspection of the chest Resp: COMMON NORMALS: normal respiratory effort and clear to auscultation bilaterally AUSCULTATION: clear to auscultation bilaterally OTHER: No wheezes or craCkles Cardio: COMMON NORMALS: no JVD, regular rate, regular rhythm, S1 normal heart sound present and S2 normal heart sound present RATE: regular rate RHYTHM: regular rhythm HEART SOUNDS: S1 normal heart sound present and S2 normal heart sound present GI: COMMON NORMALS: Normal to inspection, nondistended, normoactive bowel sounds present, Soft to palpation and non-tender PALPATION: Yes Soft to palpation : OTHER: Differed Extremity: COMMON NORMALS: normal to inspection and no pedal edema Neuro: COMMON NORMALS: patient oriented x3 SENSORIUM/ORIENTATION: Yes alert OTHER: No gross focal deficits Skin: OTHER: Scratch guajardo BL legs Discharge Data Studies Completed and Pending Completed Studies During Hospitalization Category Date Time Status CT head wo con* [id number] Stat Cat Scan 10/18/23 15:24 Completed XR chest 1V portable [id number] Stat Exams 10/18/23 14:15 Completed CV. echo complete* [id number] Routine Ultrasound 10/19/23 06:00 Completed Radiology Impressions Chest X-Ray 10/18/23 14:15 IMPRESSION: 1. No acute cardiopulmonary abnormality. Head CT 10/18/23 15:24 IMPRESSION: 1. No acute intracranial abnormality. Laboratory Results WBC 5.92 10^3/uL (3.29-11.43) 10/19/23 04:20 RBC 3.89 10^6/uL (3.85-5.65) 10/19/23 04:20 Hgb 12.50 g/dL (11.27-16.99) 10/19/23 04:20 Hct 37.5 % (37-53) 10/19/23 04:20 MCV 96.4 fl (82-101) 10/19/23 04:20 MCH 32.1 pg (27-33) 10/19/23 04:20 MCHC 33.3 g/dL (30-55) 10/19/23 04:20 RDW 13.1 % (12.1-15.1) 10/19/23 04:20 Plt Count 162 10^3/cmm (157-399) 10/19/23 04:20 MPV 9.1 fL (7.4-10.4) 10/19/23 04:20 Neut % (Auto) 59.4 % 10/19/23 04:20 Lymph % (Auto) 24.2 % 10/19/23 04:20 Mcdonough % (Auto) 11.0 % 10/19/23 04:20 Eos % (Auto) 4.4 % 10/19/23 04:20 Baso % (Auto) 0.5 % 10/19/23 04:20 Neut # (Auto) 3.52 10^3/uL (1.8-7.7) 10/19/23 04:20 Lymph # (Auto) 1.4 10^3/uL (0.8-4.8) 10/19/23 04:20 Mcdonough # (Auto) 0.7 10^3/uL (0.2-0.9) 10/19/23 04:20 Eos # (Auto) 0.3 10^3/uL (0.0-0.8) 10/19/23 04:20 Baso # (Auto) 0.0 10^3/uL (0.0-0.1) 10/19/23 04:20 Nucleated RBC % (auto) 0 % 10/19/23 04:20 Nucleated RBCs # 0.0 /100WBC 10/19/23 04:20 Specimen Type Arterial 10/18/23 14:51 Sample Site Radial, right 10/18/23 14:51 ABG pH 7.39 (7.35-7.45) 10/18/23 14:51 ABG pCO2 37.8 mmHg (35-45) 10/18/23 14:51 ABG pO2 67.9 mmHg (80.0-100.0) L 10/18/23 14:51 ABG PO2/FiO2 Ratio 0 10/18/23 14:51 ABG HCO3 22.9 mmol/L (22-26) 10/18/23 14:51 ABG O2 Saturation 92.0 10/18/23 14:51 ABG Base Excess -1.7 mmol/L (-2.0-2.0) 10/18/23 14:51 Carlos Alberto Test Pos 10/18/23 14:51 A-a O2 Gradient 4.5 mmHg (5-10) L 10/18/23 14:51 Hematocrit 41.6 % (42-52) L 10/18/23 14:51 Hgb O2 Saturation 91.0 % (95-100) L 10/18/23 14:51 Carboxyhemoglobin 0.5 %THgb (0.4-20.1) 10/18/23 14:51 Methemoglobin 0.7 % (0.4-1.5) 10/18/23 14:51 Total Hemoglobin 13.6 g/dL (14-18) L 10/18/23 14:51 Sodium 141.0 mmol/L (131-143) 10/18/23 14:51 Potassium 3.8 mmol/L (3.5-5.0) 10/18/23 14:51 Glucose 191.0 mg/dL (70-115) H 10/18/23 14:51 Ionized Calcium 1.3 mmol/L (1.1-1.4) 10/18/23 14:51 O2 Delivery Device Room air 10/18/23 14:51 FiO2 21.0 % 10/18/23 14:51 Manager Sales [employer] ID Monro 10/18/23 14:51 Sodium 143 mmol/L (136-145) 10/19/23 04:20 Potassium 3.9 mmol/L (3.5-5.1) 10/19/23 04:20 Chloride 110 mmol/L (98-107) H 10/19/23 04:20 Carbon Dioxide 24 mmol/L (22-29) 10/19/23 04:20 Anion Gap 12.9 (5-19) 10/19/23 04:20 BUN 24 mg/dL (8-23) H 10/19/23 04:20 Creatinine 0.9 mg/dL (0.7-1.2) 10/19/23 04:20 GFR Calculation 84.4 mL/min (90-130) L 10/19/23 04:20 Glucose 124 mg/dL (65-115) H 10/19/23 04:20 POC Glucose 119 mg/dL (70-110) H 10/19/23 11:32 Calculated Osmolality 301 mOsm/kg (285-295) H 10/19/23 04:20 Lactic Acid 2.1 mmol/L (0.5-2.2) 10/18/23 14:50 Lactic Acid (Sepsis) 1.6 mmol/L (0.5-2.2) 10/18/23 16:53 Calcium 8.8 mg/dL (8.5-10.5) 10/19/23 04:20 Magnesium 1.8 mg/dL (1.7-2.3) 10/18/23 14:50 Magnesium Cancelled 10/18/23 14:50 Total Bilirubin 0.5 mg/dL (0.15-1.2) 10/18/23 14:50 Total Bilirubin Cancelled 10/18/23 14:50 AST 20 U/L (0-40) 10/18/23 14:50 AST Cancelled 10/18/23 14:50 ALT 17 U/L (0-41) 10/18/23 14:50 ALT Cancelled 10/18/23 14:50 Alkaline Phosphatase 101 U/L (40-130) 10/18/23 14:50 Alkaline Phosphatase Cancelled 10/18/23 14:50 Troponin T Baseline 16 ng/L (0-15) H 10/18/23 14:50 Troponin T 120 Minute 11.71 ng/L (0-15) 10/18/23 16:53 Delta Troponin T -4.29 ABS# (0-10) L 10/18/23 16:53 Troponin T Hi Sens 6Hr 9.89 ng/L (0-15) 10/18/23 20:53 Troponin T Hi Sens 6Hr Delta -6.11 ng/L (0-12) L 10/18/23 20:53 Total Protein 8.4 g/dL (6.6-8.7) 10/18/23 14:50 Total Protein Cancelled 10/18/23 14:50 Albumin 4.6 g/dL (3.5-5.2) 10/18/23 14:50 Albumin Cancelled 10/18/23 14:50 Globulin 3.8 g/dL (1.3-4.6) 10/18/23 14:50 Globulin Cancelled 10/18/23 14:50 Lipase 53 U/L (13-60) 10/18/23 14:50 Lipase Cancelled 10/18/23 14:50 Procalcitonin 0.21 ng/mL (0-0.5) 10/18/23 14:50 Urine Color Yellow (Yellow) 10/18/23 14:50 Urine Appearance Clear (CLEAR) 10/18/23 14:50 Urine pH 5 (5-7) 10/18/23 14:50 Ur Specific [place] 1.010 (1.005-1.030) 10/18/23 14:50 Urine Protein Neg (Negative) 10/18/23 14:50 Urine Glucose (UA) 4+ (Normal) H 10/18/23 14:50 Urine Ketones 1+ (Negative) H 10/18/23 14:50 Urine Blood Neg (Negative) 10/18/23 14:50 Urine Nitrate Negative (Negative) 10/18/23 14:50 Urine Bilirubin 1+ (Negative) H 10/18/23 14:50 Urine Urobilinogen 1 mg/dL (Negative) H 10/18/23 14:50 Ur Leukocyte Esterase Negative (Negative) 10/18/23 14:50 Serum Ketones Negative (Negative) 10/18/23 14:50 Vitals Last Vital Signs Temp 98.7 F 10/19/23 15:07 Pulse 68 10/19/23 15:07 Resp 21 H 10/19/23 15:07 BP 164/81 10/19/23 15:07 Pulse Ox 96 10/19/23 15:07 O2 Del Method Room Air 10/19/23 15:07 Discharge Plan Discharge Patient Disposition: Home Condition: Stable Prescriptions: Continued Lipitor 80 mg Tablet 40 mg PO BEDTIME lamotrigine 200 mg Tablet 100 mg PO BEDTIME Zoloft 100 mg Tablet 200 mg PO QAM Vitamin B-12 1,000 mcg Tablet 1,000 mcg PO QAM aspirin 81 mg Tablet,Delayed Release (Dr/Ec) 81 mg PO QAM acetaminophen 500 mg Tablet 1,000 mg PO BID terazosin 2 mg Capsule 4 mg PO BEDTIME amlodipine 10 mg Tablet 10 mg PO BEDTIME omeprazole 20 mg Capsule,Delayed Release(Dr/Ec) 20 mg PO BID metformin 500 mg Tablet Extended Release 24 Hr 1,000 mg PO BID magnesium 200 mg Tablet 400 mg PO DAILY Cinnamon 500 mg Capsule 1,000 mg PO DAILY Vitamin D3 25 mcg (1,000 unit) Tablet 25 mcg PO QAM Centrum Silver Men [id number] mcg Tablet 1 tab PO QAM empagliflozin 25 mg Tablet 12.5 mg PO QAM Ozempic 0.25 mg or 0.5 mg (2 mg/3 mL) Pen Injector 0.5 mg SUBCUT Q7D Held losartan 100 mg Tablet 100 mg PO QAM Hold Instructions: Hold until follow up with PCP of if your BP is consistently greater than 140/90mmhg Discharge Orders: Discharge Order (Routine); Ordered 10/19/23 Ordered By: Raf Campa Referrals: Geovany Fox MD [Physician] - 1 week Discharge Diet: Usual diet Discharge Activity: Increase activity as tolerated Patient Instructions: Opioid Safety Activity Restrictions/Additional Instructions: # Lisinopril has been temporarily held . Check your Blood pressure daily , if consistently greater than 140/90 mmHg, resume taking your lisinopril. Follow with your PCP for further instructions # Continue amlodipine # Follow-up with cardiology within 1 to 2 weeks # Follow-up with your primary care provider within 1 week Discharge Attestations Time Spent in Discharge Care*: greater than 30 min Quality Metrics Clinical Quality Measures [ No reported AMI, CVA or VTE this stay] Coding Level of Care Code Acute Code for Chg Fwd Diagnoses Hypotension I95.9 Dizziness R42
--- NOTE | 2023-10-19 16:49 | PC.NURSE ---
Patient left via a wheelchair to private car with . They are here visiting family and will be returning home on . He currently has an appointment with his PCP next week and will have them set up an appointment with cardiology.
--- NOTE | 2023-10-20 07:35 | PC.OT ---
OT EVALUATION ORDERS RECEIVED. PATIENT D/C BEFORE EVALUATION COULD BE COMPLETED
== END 2023-10-19 16:48 | disposition home or self-care (01) ==
LOC: ER 17:40 → CSU 21:01
PROVIDERS: Admitting Provider Student in an Organized Health Care Education/Training Program; Emergency Provider Family Medicine; Visit Provider Student in an Organized Health Care Education/Training Program
DX: I95.9 Hypotension, unspecified (principal); R42 Dizziness and giddiness; F32.A Depression, unspecified; I10 Essential (primary) hypertension; E11.9 Type 2 diabetes mellitus without complications; Z91.81 History of falling
CPT/HCPCS: 12345; 36415; 36416; 36600; 70450; 71045; 80048; 80051; 80053; 81003; 82009; 82330; 82805; 82962; 83605; 83690; 83735; 84145; 84484; 85025; 93005; 93306; 96360; 96361; 96372; 97110; 97116; 97161; 99285; G0378; J1650; J7030; J7040

== ENCOUNTER 2024-05-27 09:32 | Outpatient (CLI) | payer OTHER, SELFPAY ==
--- NOTE | 2024-05-27 09:38 | US_ITS ---
WS: [id number] RENAL ULTRASOUND HISTORY: HX RENAL CARCINOMA 2011 COMPARISON: None available. TECHNIQUE: 2-D and color Doppler imaging of the kidney submitted. Right kidney: Prior RIGHT nephrectomy. There is no mass in the renal bed. No ascites. Left kidney: 12.1 cm x 6.6 cm x 6.0 cm. Cortex: 1.3 cm Normal echogenicity with no hydronephrosis or mass. Aorta: Normal. Urinary Bladder: Mildly distended bladder. No free fluid in the pelvis. US/US renal BI* [id number] IMPRESSION: 1. Normal LEFT kidney. 2. Status post RIGHT nephrectomy. No recurrent mass in the renal bed.
== END 2024-05-27 09:33 | disposition home or self-care (01) ==
LOC: RAD 09:34
PROVIDERS: Visit Provider Family Medicine
DX: Z85.528 Personal history of other malignant neoplasm of kidney (principal)
CPT/HCPCS: 76770

== ENCOUNTER 2024-09-21 12:56 | Inpatient (IN) | payer OTHER, SELFPAY ==
[2024-09-21] VITALS (7 sets, daily range): BP systolic 180–210; BP diastolic 83–98; PULSE 57–73; RESP 16–20; TEMP 36.4–36.6; O2SAT 95–96; BMI 30.8
--- NOTE | 2024-09-21 13:16 | PC.PHAR ---
pt is [facility] med list 09/21/24 1:15pm
--- NOTE | 2024-09-21 13:47 | W.ED.PSYCHS ---
HPI - Psych General: Chief Complaint: Psychiatric Symptoms Stated Complaint: [facility], confusion, hallucinations Time Seen by Provider: 09/21/24 13:21 Source: patient and family (Spouse) Mode of arrival: ambulatory Limitations: no limitations History of Present Illness: This patient was referred to the emergency department from the [facility]. Patient apparently is having both auditory and visual hallucinations which have increased over the past number of days reported by both the patient and his spouse. He is seeing people and hearing things that are not actually present. Most recently last night he thought the police were coming to get him for an unknown reason. The states that this does not occur. He occasionally has thoughts of harming himself but is never had any overt plan to do so and his has no concerns about his intent at this time. There are no weapons in the home or other lethal means. He has been treated with medication from the MD for questionable bipolar. His also interjects that he has had some new medications. He also has a history of diabetes and previously took Ozempic for approximately 6 months and is now longer taking that medication. He has monitored his blood sugars have been okay and has not had any history of nocturnal hypoglycemia nightmares etc. He has never been hospitalized for any mental health issues. He currently lives here with his spouse and his daughter lives in the region. They moved here approximately 6 months ago from the [place] area. He likes to fish is not currently employed has retired. He does not drink alcohol smoke tobacco, take street drugs etc. Some sadness but not pervasive. He has been eating and drinking and sleeping normally. No recent illness. There was some suggestion previously that he might have Parkinson's disease however he denies any typical symptoms. There was some questionable issues of falls and his attributes that to him taking Ozempic while on some of his other medications and a low blood pressure. Duration: getting worse Exacerbating factors: therapy Context: new medication(s) Associated psychiatric symptoms: auditory hallucinations and visual hallucinations Associated symptoms: Reports auditory hallucinations and visual hallucinations Related Data Home Medications ?Medication ?Instructions ?Recorded ?Confirmed aspirin 81 mg tablet,delayed 81 mg PO QAM 10/18/23 09/21/24 release cholecalciferol (vitamin D3) 25 25 mcg PO QAM 10/18/23 09/21/24 mcg (1,000 unit) tablet (Vitamin D3) cinnamon bark 500 mg capsule 1,000 mg PO DAILY 10/18/23 09/21/24 (Cinnamon) cyanocobalamin (vitamin B-12) 1,000 mcg PO QAM 10/18/23 09/21/24 1,000 mcg tablet (Vitamin B-12) empagliflozin 25 mg tablet 12.5 mg PO QAM 10/18/23 09/21/24 lamotrigine 200 mg tablet 100 mg PO BEDTIME 10/18/23 09/21/24 losartan 100 mg tablet 100 mg PO QAM 10/18/23 09/21/24 Held on 10/19/23. Instructions: Hold until follow up with PCP of if your BP is consistently greater than 140/90mmhg magnesium 200 mg tablet 400 mg PO DAILY 10/18/23 09/21/24 [id number] 300 mcg-K 60 1 tab PO QAM 10/18/23 09/21/24 mcg-lycop 600 mcg-lutein 300 mcg tablet (Centrum Silver Men) omeprazole 20 mg capsule,delayed 20 mg PO BID 10/18/23 09/21/24 release semaglutide 0.25 mg or 0.5 mg (2 0.25 mg SUBCUT Q7D 10/18/23 09/21/24 mg/3 mL) subcutaneous pen injector (Ozempic) sertraline 100 mg tablet (Zoloft) 200 mg PO QAM 10/18/23 09/21/24 aripiprazole 10 mg tablet 5 mg PO BEDTIME 09/21/24 09/21/24 atorvastatin 80 mg tablet 40 mg PO QPM 09/21/24 09/21/24 tamsulosin 0.4 mg capsule 0.4 mg PO QPM 09/21/24 09/21/24 testosterone 12.5 mg/1.25 gram per 42 pump transdermal DAILY 09/21/24 09/21/24 pump actuation (1%) transdermal gel Allergies Allergy/AdvReac Type Severity Reaction Status Date / Time medication for foot fungus Allergy Mild ALGY-Rash Uncoded 09/21/24 13:07 Review of Systems Const: Denies: fever(s) or chills Eyes: Denies: change in vision ENMT: Denies: throat pain, odynophagia, nasal discharge or nasal congestion Card: Denies: chest pain, palpitations, irregular heart rhythm or syncope Resp: Denies: dyspnea, productive cough, non-productive cough or wheezing GI: Denies: abdominal pain, nausea, vomiting or hematemesis : Denies: flank pain, difficulty urinating or dysuria Skin/Breast: Denies: rash Neuro: Denies: headache(s), numbness in extremities or weakness in extremities Psych: Reports: mood swings, visual hallucinations and auditory hallucinations Endo: Denies: polyuria or polydipsia PFSH ED PFSH: Medical History Dizziness Hypotension Type 2 diabetes mellitus Hypertension Depression Surgical History H/O right nephrectomy Social History Smoking and tobacco/nicotine status: never used tobacco/nicotine Alcohol intake: never Substance/Drug Use: never Physical Exam Narrative: EXAM NARRATIVE: He is alert no acute distress makes good eye contact. Speech is goal-directed and fluent. Const: COMMON NORMALS: patient oriented x3, healthy appearing and alert GENERAL APPEARANCE: cooperative, comfortable and well kempt NUTRITIONAL APPEARANCE: overweight ORIENTATION/CONSCIOUSNESS: Yes awake, Yes oriented to person and Yes oriented to place HENMT: COMMON NORMALS: normocephalic, atraumatic, Normal nasal mucous membranes and turbinates present, moist oral mucous membranes and oropharynx normal HEAD & SCALP: normocephalic and atraumatic FACE & SINUS: normal facial exam and face symmetric NOSE: Normal nasal mucous membranes and turbinates present Eye: COMMON NORMALS: Equal, round and reactive pupils present, EOMs intact bilaterally and conjunctivae normal CONJUNCTIVA: Yes conjunctivae normal PUPIL: Yes Equal, round and reactive pupils present Neck/C-Spine: COMMON NORMALS: full ROM, no lymphadenopathy, no JVD and Thyroid normal THYROID: Thyroid normal Chest: COMMONS NORMALS: normal inspection of the chest Resp: COMMON NORMALS: normal respiratory effort, No retractions, No use of accessory muscles and clear to auscultation bilaterally AUSCULTATION: clear to auscultation bilaterally Cardio: COMMON NORMALS: no JVD, regular rate, regular rhythm, No murmurs present (Cardio) and Peripheral pulses 2+ throughout RATE: regular rate RHYTHM: regular rhythm PERIPHERAL PULSES: Peripheral pulses 2+ throughout GI: COMMON NORMALS: Normal to inspection, nondistended, normoactive bowel sounds present, Soft to palpation and non-tender PALPATION: Yes Soft to palpation : COMMON NORMALS: Yes no CVA tenderness BLADDER/KIDNEY EXAM: Yes no CVA tenderness Back/Pelvis: COMMON NORMALS: no CVA tenderness, thoracic and lumbar spine normal to inspection and no thoracic nor lumbar tenderness Extremity: COMMON NORMALS: normal to inspection, full ROM, no calf tenderness and no pedal edema Neuro: COMMON NORMALS: patient oriented x3, moves all extremities and no focal motor deficits SENSORIUM/ORIENTATION: Yes alert, Yes oriented to person and Yes oriented to place CRANIAL NERVES: Yes CN normal except as noted Psych: COMMON NORMALS: cooperative, normal affect and speech normal APPEARANCE: Yes well kempt ATTITUDE: Yes calm and Yes engaged ACTIVITY/MOTOR BEHAVIOR: Yes appropriate eye contact SPEECH: Yes normal speech THOUGHT PROCESS: Circumstantial thought process present THOUGHT CONTENT: No Suicidality present, No Homicidality present and Yes Hallucination(s) present Skin: COMMON NORMALS: no rashes or lesions noted, no wounds and turgor normal GENERAL SKIN EXAM: no rashes or lesions noted and turgor normal Course Reevaluation(s): Reevaluation #1: I reviewed his medications and is not clear if he is taking his medications appropriately or not and is also apparently taking lamotrigine and sertraline together they are both on active list and I am not sure if he is having some medication interactions or other factors that are changing his recent behavior. His daughter pulled me aside and expressed her concern about his change in behavior and history access to medication and concerned about what has been going on with him. I think at this point is best served to get him into a [facility] psych facility for full evaluation medication reconciliation etc. Time: 15:24 Reevaluation #2: [facility] not [facility] ability except this patient at this time. After consultation with our psychiatrist we are able to admit this patient because he is otherwise physically stable and can complete his ADLs independently. Time: 17:03 Consultations: Consultation #1: Discussed with Dr. Salvador. We need to ensure that the MD will not accept him and therefore declined his admission here before he we proceed with admitting him here. Time: 15:50 Vital Signs: Vital signs: Vital Signs Temperature 97.9 F 09/21/24 12:58 Pulse Rate 63 09/21/24 15:30 Blood Pressure 196/98 09/21/24 15:30 Pulse Oximetry 96 09/21/24 15:30 Oxygen Delivery Me thod Room Air 09/21/24 15:30 MDM - Psych Medical Decision Making Patient presented as noted in the HPI. Patient's suicidality risk appears to be low at this time there is suggestion of psychotic features with both visual and auditory hallucinations however the patient appears to be fairly well grounded in the emergency department. Ancillary studies were obtained to ensure that there was no evidence of thyroid dysfunction anemia or other metabolic perturbations. His CT scan was also obtained which was reassuring without any evidence of space-occupying lesion, midline shift recent intracranial hemorrhage or hematoma etc. Again suicidality appears to be low at this time but his behavioral changes with psychotic features and potential for medication misadventures warrants further mental health evaluation. No other evidence in the emergency department this time of acute medical condition that might be contributing to his symptoms. Differential Diagnosis Likely acute psychosis Lab Data I reviewed the patient's lab results. 09/21/24 14:03 09/21/24 14:[address] 09/21/24 13:54 IMPRESSION: 1. No acute intracranial hemorrhage or edema. 2. Mild atrophy and small vessel disease. Chest X-Ray 09/21/24 15:26 IMPRESSION: No acute findings. Laboratory Results WBC 7.19 10^3/uL (3.29-11.43) 09/21/24 14:03 RBC 4.27 10^6/uL (3.85-5.65) 09/21/24 14:03 Hgb 13.00 g/dL (11.27-16.99) 09/21/24 14:03 Hct 39.6 % (37-53) 09/21/24 14:03 MCV 92.7 fl (82-101) 09/21/24 14:03 MCH 30.4 pg (27-33) 09/21/24 14:03 MCHC 32.8 g/dL (30-55) 09/21/24 14:03 RDW 13.3 % (12.1-15.1) 09/21/24 14:03 Plt Count 152 10^3/cmm (157-399) L 09/21/24 14:03 MPV 9.3 fL (7.4-10.4) 09/21/24 14:03 Neut % (Auto) 66.5 % 09/21/24 14:03 Lymph % (Auto) 22.9 % 09/21/24 14:03 Fisher % (Auto) 7.4 % 09/21/24 14:03 Eos % (Auto) 2.1 % 09/21/24 14:03 Baso % (Auto) 0.7 % 09/21/24 14:03 Neut # (Auto) 4.78 10^3/uL (1.8-7.7) 09/21/24 14:03 Lymph # (Auto) 1.7 10^3/uL (0.8-4.8) 09/21/24 14:03 Fisher # (Auto) 0.5 10^3/uL (0.2-0.9) 09/21/24 14:03 Eos # (Auto) 0.2 10^3/uL (0.0-0.8) 09/21/24 14:03 Baso # (Auto) 0.1 10^3/uL (0.0-0.1) 09/21/24 14:03 Nucleated RBC % (auto) 0 % 09/21/24 14:03 Nucleated RBCs # 0.0 /100WBC 09/21/24 14:03 Sodium 136 mmol/L (136-145) 09/21/24 14:03 Potassium 4.4 mmol/L (3.5-5.1) 09/21/24 14:03 Chloride 100 mmol/L (98-107) 09/21/24 14:03 Carbon Dioxide 25 mmol/L (22-29) 09/21/24 14:03 Anion Gap 15.4 (5-19) 09/21/24 14:03 BUN 21 mg/dL (8-23) 09/21/24 14:03 Creatinine 1.0 mg/dL (0.7-1.2) 09/21/24 14:03 GFR Calculation 74.5 mL/min (90-130) L 09/21/24 14:03 Glucose 156 mg/dL (65-115) H 09/21/24 14:03 Calculated Osmolality 288 mOsm/kg (285-295) 09/21/24 14:03 Calcium 9.2 mg/dL (8.5-10.5) 09/21/24 14:03 Total Bilirubin 0.3 mg/dL (0.15-1.2) 09/21/24 14:03 AST 22 U/L (0-40) 09/21/24 14:03 ALT 20 U/L (0-41) 09/21/24 14:03 Alkaline Phosphatase 111 U/L (40-130) 09/21/24 14:03 Total Protein 7.2 g/dL (6.6-8.7) 09/21/24 14:03 Albumin 3.9 g/dL (3.5-5.2) 09/21/24 14:03 Globulin 3.3 g/dL (1.3-4.6) 09/21/24 14:03 TSH 1.81 uIU/mL (0.27-4.20) 09/21/24 14:03 Urine Color Yellow (Yellow) 09/21/24 14:18 Urine Appearance Clear (CLEAR) 09/21/24 14:18 Urine pH 7.0 (5-7) 09/21/24 14:18 Ur Specific Ruby 1.024 (1.005-1.030) 09/21/24 14:18 Urine Protein 2+ (Negative) A 09/21/24 14:18 Urine Glucose (UA) 3+ (Normal) H 09/21/24 14:18 Urine Ketones Negative (Negative) 09/21/24 14:18 Urine Blood Negative (Negative) 09/21/24 14:18 Urine Nitrate Negative (Negative) 09/21/24 14:18 Urine Bilirubin Negative (Negative) 09/21/24 14:18 Urine Urobilinogen 1.0 mg/dL (Negative) 09/21/24 14:18 Ur Leukocyte Esterase Negative (Negative) 09/21/24 14:18 Urine RBC 0-2 /hpf (0-2) 09/21/24 14:18 Urine WBC 0-5 /hpf (0-5) 09/21/24 14:18 Ur Squamous Epith Cells 0-5 /hpf (0-5) 09/21/24 14:18 Amorphous Sediment Not Reportable 09/21/24 14:18 Urine Bacteria None seen /hpf (NONE) 09/21/24 14:18 Hyaline Casts 0.40 /lpf 09/21/24 14:18 Salicylates 1.4 mg/dL (3-10) L 09/21/24 14:03 Acetaminophen < 5.0 ug/mL (10-30) L 09/21/24 14:03 Ethyl Alcohol < 10 mg/dL (0-10) 09/21/24 14:03 Influenza A (PCR) Negative (Negative) 09/21/24 15:35 Influenza Type B (PCR) Negative (Negative) 09/21/24 15:35 RSV (PCR) Negative (Negative) 09/21/24 15:35 SARS-CoV-2 (PCR) Negative (Negative) 09/21/24 15:35 All radiology interpretation(s) finalized by discharge Discharge Plan Discharge Patient Disposition: Admitted As Inpatient Clinical Impression: Acute psychosis, Bipolar disorder Condition: Stable Prescriptions: No Action atorvastatin 80 mg Tablet 40 mg PO QPM tamsulosin 0.4 mg Capsule 0.4 mg PO QPM aripiprazole 10 mg Tablet 5 mg PO BEDTIME testosterone [AndroGel] 12.5 mg/ 1.25 gram (1 %) Gel In Metered-Dose Pump 42 pump TRANSDERMAL DAILY lamotrigine 200 mg Tablet 100 mg PO BEDTIME sertraline [Zoloft] 100 mg Tablet 200 mg PO QAM cyanocobalamin (vitamin B-12) [Vitamin B-12] 1,000 mcg Tablet 1,000 mcg PO QAM aspirin 81 mg Tablet,Delayed Release (Dr/Ec) 81 mg PO QAM omeprazole 20 mg Capsule,Delayed Release(Dr/Ec) 20 mg PO BID losartan 100 mg Tablet 100 mg PO QAM magnesium 200 mg Tablet 400 mg PO DAILY cinnamon bark [Cinnamon] 500 mg Capsule 1,000 mg PO DAILY cholecalciferol (vitamin D3) [Vitamin D3] 25 mcg (1,000 unit) Tablet 25 mcg PO QAM Centrum Silver Men [id number] mcg Tablet 1 tab PO QAM empagliflozin 25 mg Tablet 12.5 mg PO QAM Ozempic 0.25 mg or 0.5 mg (2 mg/3 mL) Pen Injector 0.25 mg SUBCUT Q7D Referrals: Maria Del Rosario Olmos MD [Primary Care Provider] - Print Language: Gabonese Coding Level of Care Code ED Correctional Maintenance Technician for g Padmini
--- NOTE | 2024-09-21 13:54 | CT_ITS ---
WS: [id number] CT HEAD NONCONTRAST HISTORY: fall and recent hallucination TECHNIQUE: Contiguous axial imaging performed through the brain. Bone and soft tissue windows. Sagittal and coronal reformats reviewed. All CT scans at [facility] use at least one of these dose optimization techniques: automated exposure control; mA and/or kV adjustment per patient size (includes targeted exams where dose is matched to clinical indication); or iterative reconstruction. DLP: 1083.58 mGy.cm COMPARISON: 10/18/2023 No acute intracranial hemorrhage, midline shift or mass effect. Mild atrophy and small vessel disease. Ventricles: Normal size with no hydrocephalus. No inferior displacement of the cerebellar tonsils. Paranasal sinuses: Mucoperiosteal thickening in the LEFT ethmoid sinuses extending into the frontoethmoid recess. No air-fluid levels. Mastoid air cells: Well pneumatized. Calvarium and scalp: Skull is intact with no soft tissue edema or swelling. CT/CT head wo con* [id number] IMPRESSION: 1. No acute intracranial hemorrhage or edema. 2. Mild atrophy and small vessel disease.
--- NOTE | 2024-09-21 14:01 | PC.NURSE ---
PT NOT PLACED IN PAPER SCRUBS WITH BELONGINGS REMOVED DUE TO PT BEING TREATED A MEDICAL PATIENT AT THIS TIME.
[2024-09-21 14:07] LABS: Basophils # 0.1 10^3/uL (0.0-0.1); Basophils % 0.7 %; Eosinophils # 0.2 10^3/uL (0.0-0.8); Eosinophils % 2.1 %; Hematocrit 39.6 % (37-53); Lymphocytes # 1.7 10^3/uL (0.8-4.8); Lymphocytes % 22.9 %; Mean Corpuscular HGB Conc 32.8 g/dL (30-55); Mean Corpuscular Hemoglobin 30.4 pg (27-33); Mean Corpuscular Volume 92.7 fl (82-101); Mean Platelet Volume 9.3 fL (7.4-10.4); Monocytes # 0.5 10^3/uL (0.2-0.9); Monocytes % 7.4 %; Neutrophils # 4.78 10^3/uL (1.8-7.7); Neutrophils % 66.5 %; Nucleated Red Blood Cells % 0 %; Platelet Count 152 10^3/cmm (157-399); Red Blood Count 4.27 10^6/uL (3.85-5.65); Red Cell Distribution Width 13.3 % (12.1-15.1); White Blood Count 7.19 10^3/uL (3.29-11.43)
[2024-09-21 14:37] LABS: Bilirubin Urine Negative (Negative); Blood Urine Negative (Negative); Glucose Urine UA 3+ (Normal); Ketones Urine Negative (Negative); Leukocyte Esterase Urine Negative (Negative); Nitrate Urine Negative (Negative); Protein Urine 2+ (Negative); Specific Gravity, Urine 1.024 (1.005-1.030); Urine Appearance Clear (CLEAR); Urine Color Yellow (Yellow)
[2024-09-21 14:42] LABS: Add Urine Microscopic? YES; Bacteria Urine None Seen /hpf; RBC Urine 0-2 /hpf (0-2); Squamous Epithelial Cell Urine 0-5 /hpf (0-5); WBC Urine 0-5 /hpf (0-5)
[2024-09-21 14:47] LABS: Alanine Aminotransferase 20 U/L (0-41); Albumin Level 3.9 g/dL (3.5-5.2); Alkaline Phosphatase 111 U/L (40-130); Anion Gap 15.4 (5-19); Aspartate Amino Transferase 22 U/L (0-40); Blood Urea Nitrogen 21 mg/dL (8-23); Calcium 9.2 mg/dL (8.5-10.5); Carbon Dioxide 25 mmol/L (22-29); Chloride 100 mmol/L (98-107); Creatinine Clr Calc Pharmacy 83.9589; Globulin 3.3 g/dL (1.3-4.6); Glomerular Filtration Rate 74.5 mL/min (90-130); Glucose 156 mg/dL (65-115); Osmolality Calculated 288 mOsm/kg (285-295); Potassium 4.4 mmol/L (3.5-5.1); Salicylate 1.4 mg/dL (3-10); Sodium 136 mmol/L (136-145); Thyroid Stimulating Hormone 1.81 uIU/mL (0.27-4.20); Total Bilirubin 0.3 mg/dL (0.15-1.2); Total Protein 7.2 g/dL (6.6-8.7)
[2024-09-21 14:48] LABS: Acetaminophen < 5.0 ug/mL (10-30); Alcohol Level < 10 mg/dL (0-10)
--- NOTE | 2024-09-21 15:26 | XRR_ITS ---
PROCEDURE INFORMATION: Exam: XR Chest Exam date and time: 09/21/2024 3:53 PM Age: 68 years old Clinical indication: Cough; Additional info: TECHNIQUE: Imaging protocol: Radiologic exam of the chest. Views: 1 view. COMPARISON: CR XR chest 1V portable [id number] 10/18/2023 2:51 PM FINDINGS: Lungs: There is no consolidation. Pleural spaces: There is no pleural effusion or pneumothorax. Heart/Mediastinum: There is mild enlargement of the cardiac silhouette. Bones/joints: Bones are unremarkable. XR/XR chest 1V portable [id number] IMPRESSION: No acute findings.
--- NOTE | 2024-09-21 15:43 | PC.NURSE ---
AFTER EVALUATION BY PHYSICIAN, PT DRESSED OUT INTO GREEN PAPER SCRUBS AND ALL BELONGINGS REMOVED. PT ROOM WAS STRIPPED OF ANY DANGEROUS ITEMS WELL. PSA OUTSIDE ROOM.
[2024-09-21 16:55] LABS: Influenza A NEGATIVE (Negative); Influenza B NEGATIVE (Negative); Respiratory Syncytial Virus Ce NEGATIVE (Negative); SARS-CoV-2 PCR NEGATIVE (Negative)
[2024-09-21] MEDS: losartan 50 mg Tablet 100 MG PO (17:38)
--- NOTE | 2024-09-21 17:40 | PC.NURSE ---
PT BLOOD PRESSURE ELEVATED AFTER REPORT CALLED TO [facility]. PO LOSARTAN GIVEN. PT WILL BE TRANSFERRED TO [facility] AFTER BLOOD PRESSURE IS WITHIN NORMAL LIMITS.
--- NOTE | 2024-09-21 18:28 | PC.NURSE ---
DISCUSSED PT BLOOD PRESSURE WITH DR. CABELLO. DR. CABELLO VERBALIZED THAT PT WAS SAFE TO GO DOWN TO [facility] WITH NEW BLOOD PRESSURE DUE TO IT TRENDING DOWNWARD AND THE MEDICATION CONTINUING TO WORK. [facility], LORENE CURRAN, NOTIFIED.
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
[2024-09-21] MEDS: ARIPiprazole 10 mg Tablet 5 MG PO (21:06)
[2024-09-21] MEDS: lamoTRIgine 100 mg Tablet PO (21:07)
[2024-09-21] MEDS: hydroCHLOROthiazide 25 mg Tablet PO (21:07)
[2024-09-21] MEDS: hyDRALAzine 10 mg Tablet PO (21:07)
--- NOTE | 2024-09-22 02:34 | PC.NURSE ---
pt came to nurses station stating were is the leah that came to get him. pt was told no one is here and he is safe pt was redirected back to bed
[2024-09-22 06:00] VITALS: BP 170/92; PULSE 62; RESP 18; O2SAT 97
[2024-09-22] MEDS: hyDRALAzine 10 mg Tablet PO ×2 (09:00→15:26)
[2024-09-22] MEDS: losartan 50 mg Tablet 100 MG PO ×2 (09:01→09:20)
[2024-09-22] MEDS: isosorbide mononitrate 20 mg Tablet PO ×2 (09:01→17:40)
[2024-09-22] MEDS: pantoprazole DR 40 mg Tablet PO (09:01)
[2024-09-22] MEDS: sertraline 100 mg Tablet 200 MG PO (09:15)
[2024-09-22] MEDS: hydroCHLOROthiazide 25 mg Tablet PO (09:18)
[2024-09-22] MEDS: cholecalciferol (vitamin D3) 1,000 unit Tablet 1000 UNIT PO (09:18)
[2024-09-22] MEDS: cyanocobalamin 1,000 mcg Tablet 1000 MCG PO (09:18)
[2024-09-22] MEDS: magnesium oxide 400 mg tablet PO (09:20)
[2024-09-22] MEDS: aspirin 81 mg EC Tablet PO (09:20)
--- NOTE | 2024-09-22 09:28 | PM.CONSULT ---
Providers/Reason For Consult Attending Physician: Viraj Salvador MD Primary Care Provider: Maria Del Rosario Olmos MD History of Present Illness History of Present Illness Billy Orlando is a 68 year old male Medications/Allergies Home Medications ?Medication ?Instructions ?Recorded ?Confirmed ?Last Taken ?Type aspirin 81 mg tablet,delayed 81 mg PO QAM 10/18/23 09/21/24 09/21/24 History release cholecalciferol (vitamin D3) 25 25 mcg PO QAM 10/18/23 09/21/24 09/21/24 History mcg (1,000 unit) tablet (Vitamin D3) cinnamon bark 500 mg capsule 1,000 mg PO DAILY 10/18/23 09/21/24 09/21/24 History (Cinnamon) cyanocobalamin (vitamin B-12) 1,000 mcg PO QAM 10/18/23 09/21/24 09/21/24 History 1,000 mcg tablet (Vitamin B-12) empagliflozin 25 mg tablet 12.5 mg PO QAM 10/18/23 09/21/24 09/21/24 History lamotrigine 200 mg tablet 100 mg PO BEDTIME 10/18/23 09/21/24 09/20/24 History losartan 100 mg tablet 100 mg PO QAM 10/18/23 09/21/24 09/21/24 History Held on 10/19/23. Instructions: Hold until follow up with PCP of if your BP is consistently greater than 140/90mmhg magnesium 200 mg tablet 400 mg PO DAILY 10/18/23 09/21/24 09/21/24 History [id number] 300 mcg-K 60 1 tab PO QAM 10/18/23 09/21/24 09/21/24 History mcg-lycop 600 mcg-lutein 300 mcg tablet (Centrum Silver Men) omeprazole 20 mg capsule,delayed 20 mg PO BID 10/18/23 09/21/24 09/21/24 History release semaglutide 0.25 mg or 0.5 mg (2 0.25 mg SUBCUT Q7D 10/18/23 09/21/24 09/17/24 History mg/3 mL) subcutaneous pen injector (Ozempic) sertraline 100 mg tablet (Zoloft) 200 mg PO QAM 10/18/23 09/21/24 09/21/24 History aripiprazole 10 mg tablet 5 mg PO BEDTIME 09/21/24 09/21/24 09/20/24 History atorvastatin 80 mg tablet 40 mg PO QPM 09/21/24 09/21/24 09/20/24 History tamsulosin 0.4 mg capsule 0.4 mg PO QPM 09/21/24 09/21/24 09/20/24 History testosterone 12.5 mg/1.25 gram per 42 pump transdermal DAILY 09/21/24 09/21/24 09/20/24 History pump actuation (1%) transdermal gel Allergies Allergy/AdvReac Type Severity Reaction Status Date / Time medication for foot fungus Allergy Mild ALGY-Rash Uncoded 09/21/24 13:07 Current Medications Generic Name Dose Route Start Last Admin Trade Name Clq PRN Reason Stop Dose Admin Aripiprazole 5 mg 09/21/24 21:00 09/21/24 21:06 Aripiprazole 10 Mg Tablet PO 5 mg BEDTIME HOMA Administration Aspirin 81 mg 09/22/24 09:00 09/22/24 09:20 Aspirin 81 Mg Ec Tablet PO 81 mg DAILY HOMA Administration Cyanocobalamin 1,000 mcg 09/22/24 09:00 09/22/24 09:18 Cyanocobalamin 1,000 Mcg Tablet PO 1,000 mcg DAILY HOMA Administration Hydralazine HCl 10 mg 09/21/24 21:30 09/21/24 21:07 Hydralazine 10 Mg Tablet PO 10 mg TID HOMA Administration Hydrochlorothiazide 25 mg 09/21/24 20:55 09/22/24 09:18 Hydrochlorothiazide 25 Mg Tablet PO 25 mg DAILY HOMA Administration Lamotrigine 100 mg 09/21/24 21:00 09/21/24 21:07 Lamotrigine 100 Mg Tablet PO 100 mg BEDTIME HOMA Administration Losartan Potassium 100 mg 09/21/24 17:45 09/22/24 09:20 Losartan 50 Mg Tablet PO 100 mg DAILY HOMA Administration Magnesium Oxide 400 mg 09/22/24 09:00 09/22/24 09:20 Magnesium Oxide 400 Mg Tablet PO 400 mg DAILY HOMA Administration Sertraline HCl 200 mg 09/22/24 09:00 09/22/24 09:15 Sertraline 100 Mg Tablet PO 200 mg DAILY HOMA Administration Vitamin D 1,000 unit 09/22/24 09:00 03/19/25 09:18 Cholecalciferol (Vitamin D3) 1,000 Unit Tablet PO 1,000 unit DAILY HOMA Administration PFSH Acute PFSH: Medical History Dizziness Hypotension Type 2 diabetes mellitus Hypertension Depression Surgical History H/O right nephrectomy Social History Smoking and tobacco/nicotine status: never used tobacco/nicotine Alcohol intake: never Substance/Drug Use: never Vitals/I&O/Wt Last Vital Signs Temp 97.5 F L 09/21/24 19:55 Pulse 62 09/22/24 06:00 Resp 18 09/22/24 06:00 BP 170/92 09/22/24 06:00 Pulse Ox 97 09/22/24 06:00 O2 Del Method Room Air 09/21/24 18:26 Weight last 48 hrs Weight 97.522 kg Data 09/21/24 14:03 09/21/24 14:03 A&P PDMP PDMP Reviewed: Not Reviewed Coding Level of Care Code Acute Code for Chg Padmini
[2024-09-22 11:10] LABS: Glucose Point of Care 149 mg/dL (70-110)
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
[2024-09-22 14:00] VITALS: BP 167/89; PULSE 71; RESP 18; TEMP 36.9; O2SAT 95
[2024-09-22] MEDS: tamsulosin 0.4 mg Capsule PO (17:40)
[2024-09-22] MEDS: hyDRALAzine 25 mg Tablet PO ×2 (17:40→21:06)
[2024-09-22] MEDS: atorvastatin 40 mg Tablet PO (17:41)
[2024-09-22 20:34] VITALS: BP 112/62; PULSE 73; RESP 18; O2SAT 92
[2024-09-22] MEDS: lamoTRIgine 100 mg Tablet PO (21:06)
[2024-09-22] MEDS: ARIPiprazole 10 mg Tablet PO (21:06)
--- NOTE | 2024-09-22 22:47 | PM.CONSULT ---
Providers/Reason For Consult Consulting Physician/Specialty*: Hospitalist Reason for Consult*: Comorbid medical management Attending Physician: Viraj Salvador MD Primary Care Provider: Maria Del Rosario Olmos MD History of Present Illness History of Present Illness Billy Orlando is a 68 year old male who is admitted to psychiatric unit for psychosis, he has history of Parkinson's, other medical conditions include diabetes, hypertension, hospitalist service was consulted for management of comorbid conditions. Review of Systems Const: Denies: fever(s) Eyes: Denies: change in vision ENMT: Denies: throat pain Card: Denies: chest pain Resp: Denies: dyspnea GI: Denies: abdominal pain Medications/Allergies Home Medications ?Medication ?Instructions ?Recorded ?Confirmed ?Last Taken ?Type aspirin 81 mg tablet,delayed 81 mg PO QAM 10/18/23 09/21/24 09/21/24 History release cholecalciferol (vitamin D3) 25 25 mcg PO QAM 10/18/23 09/21/24 09/21/24 History mcg (1,000 unit) tablet (Vitamin D3) cinnamon bark 500 mg capsule 1,000 mg PO DAILY 10/18/23 09/21/24 09/21/24 History (Cinnamon) cyanocobalamin (vitamin B-12) 1,000 mcg PO QAM 10/18/23 09/21/24 09/21/24 History 1,000 mcg tablet (Vitamin B-12) empagliflozin 25 mg tablet 12.5 mg PO QAM 10/18/23 09/21/24 09/21/24 History lamotrigine 200 mg tablet 100 mg PO BEDTIME 10/18/23 09/21/24 09/20/24 History losartan 100 mg tablet 100 mg PO QAM 10/18/23 09/21/24 09/21/24 History Held on 10/19/23. Instructions: Hold until follow up with PCP of if your BP is consistently greater than 140/90mmhg magnesium 200 mg tablet 400 mg PO DAILY 10/18/23 09/21/24 09/21/24 History eedtpfwo-eu-rrlnq 300 mcg-K 60 1 tab PO QAM 10/18/23 09/21/24 09/21/24 History mcg-lycop 600 mcg-lutein 300 mcg tablet (Centrum Silver Men) omeprazole 20 mg capsule,delayed 20 mg PO BID 0409/21/24 09/21/24 History release semaglutide 0.25 mg or 0.5 mg (2 0.25 mg SUBCUT Q7D 10/18/23 09/21/24 09/17/24 History mg/3 mL) subcutaneous pen injector (Ozempic) sertraline 100 mg tablet (Zoloft) 200 mg PO QAM 10/18/23 09/21/24 09/21/24 History aripiprazole 10 mg tablet 5 mg PO BEDTIME 09/21/24 09/21/24 09/20/24 History atorvastatin 80 mg tablet 40 mg PO QPM 09/21/24 09/21/24 09/20/24 History tamsulosin 0.4 mg capsule 0.4 mg PO QPM 09/21/24 09/21/24 09/20/24 History testosterone 12.5 mg/1.25 gram per 42 pump transdermal DAILY 09/21/24 09/21/24 09/20/24 History pump actuation (1%) transdermal gel Allergies Allergy/AdvReac Type Severity Reaction Status Date / Time medication for foot fungus Allergy Mild ALGY-Rash Uncoded 09/21/24 13:07 Current Medications Generic Name Dose Route Start Last Admin Trade Name Freq PRN Reason Stop Dose Admin Aripiprazole 10 mg 09/22/24 21:00 09/22/24 21:06 Aripiprazole 10 Mg Tablet PO 10 mg BEDTIME HOMA Administration Aspirin 81 mg 09/22/24 09:00 09/22/24 09:20 Aspirin 81 Mg Ec Tablet PO 81 mg DAILY HOMA Administration Atorvastatin Calcium 40 mg 09/22/24 18:00 09/22/24 17:41 Atorvastatin 40 Mg Tablet PO 40 mg QPM HOMA Administration Cyanocobalamin 1,000 mcg 09/22/24 09:00 09/22/24 09:18 Cyanocobalamin 1,000 Mcg Tablet PO 1,000 mcg DAILY HOMA Administration Hydralazine HCl 25 mg 09/22/24 17:15 09/22/24 21:06 Hydralazine 25 Mg Tablet PO 25 mg TID HOMA Administration Hydrochlorothiazide 25 mg 09/21/24 20:55 09/22/24 09:18 Hydrochlorothiazide 25 Mg Tablet PO 25 mg DAILY HOMA Administration Isosorbide Mononitrate 20 mg 09/22/24 09:00 09/22/24 17:40 Isosorbide Mononitrate 20 Mg Tablet PO 20 mg BID HOMA Administration Lamotrigine 100 mg 09/21/24 21:00 09/22/24 21:06 Lamotrigine 100 Mg Tablet PO 100 mg BEDTIME HOMA Administration Losartan Potassium 100 mg 09/21/24 17:45 09/22/24 09:20 Losartan 50 Mg Tablet PO 100 mg DAILY HOMA Administration Magnesium Oxide 400 mg 09/22/24 09:00 09/22/24 09:20 Magnesium Oxide 400 Mg Tablet PO 400 mg DAILY HOMA Administration Pantoprazole Sodium 40 mg 09/22/24 09:00 09/22/24 09:[address] 40 Mg Tablet PO 40 mg DAILY HOMA Administration Sertraline HCl 200 mg 09/22/24 09:00 09/22/24 09:15 Sertraline 100 Mg Tablet PO 200 mg DAILY HOMA Administration Tamsulosin HCl 0.4 mg 09/22/24 18:00 09/22/24 17:40 Tamsulosin 0.4 Mg Capsule PO 0.4 mg QPM HOMA Administration Vitamin D 1,000 unit 09/22/24 09:00 09/22/24 09:18 Cholecalciferol (Vitamin D3) 1,000 Unit Tablet PO 1,000 unit DAILY HOMA Administration PFSH Acute PFSH: Medical History Dizziness Hypotension Type 2 diabetes mellitus Hypertension Depression Surgical History H/O right nephrectomy Social History Smoking and tobacco/nicotine status: never used tobacco/nicotine Alcohol intake: never Substance/Drug Use: never Vitals/I&O/Wt Last Vital Signs Temp 98.4 F 09/22/24 14:00 Pulse 73 09/22/24 20:34 Resp 18 09/22/24 20:34 BP 112/62 09/22/24 20:34 Pulse Ox 92 09/22/24 20:34 O2 Del Method Room Air 09/22/24 14:00 Weight last 48 hrs Weight 97.522 kg Physical Exam Narrative: Morbidly obese male Hemodynamically stable No active chest pain GCS 15 Nonfocal neuroexam No audible stridor or wheezing Pleasant during evaluation Data 09/21/24 14:03 09/21/24 14:03 A&P Assessment and plan (1) Bipolar disorder: Qualifiers: Active/Remission status: remission status unspecified Qualified Code(s): F31.9 - Bipolar disorder, unspecified (2) Acute psychosis: (3) Depression: (4) Hypertension: (5) Type 2 diabetes mellitus: (6) Parkinson's disease (tremor, stiffness, slow motion, unstable posture): Plan Hypertension with diabetes Autonomic dysfunction likely with Parkinson's Blood pressure currently stable on isosorbide mononitrate twice daily regimen, losartan 100 mg daily, hydralazine dose increased to 25 mg 3 times a day Continue aspirin: Will add consistent carb diet and sliding scale PDMP PDMP Reviewed: Not Reviewed Consult Attestations Medical Necessity Statement: As per neuropsych Coding Level of Care Code Acute Code for g Fwd Diagnoses Bipolar disorder F31.9 Active/Remission status: remission status unspecified Acute psychosis F23 Depression F32.A Hypertension I10 Type 2 diabetes mellitus E11.9 Parkinson's disease (tremor, stiffness, slow motion, unstable posture) G20.A1
[2024-09-23 06:00] VITALS: BP 169/84; PULSE 67; RESP 18; O2SAT 96
[2024-09-23 07:13] LABS: Glucose Point of Care 187 mg/dL (70-110)
[2024-09-23] MEDS: isosorbide mononitrate 20 mg Tablet PO ×2 (07:52→17:49)
[2024-09-23] MEDS: aspirin 81 mg EC Tablet PO (07:52)
[2024-09-23] MEDS: cholecalciferol (vitamin D3) 1,000 unit Tablet 1000 UNIT PO (07:52)
[2024-09-23] MEDS: hydroCHLOROthiazide 25 mg Tablet 50 MG PO (07:53)
[2024-09-23] MEDS: losartan 50 mg Tablet 100 MG PO (07:53)
[2024-09-23] MEDS: sertraline 100 mg Tablet 200 MG PO (07:54)
[2024-09-23] MEDS: hyDRALAzine 25 mg Tablet PO ×3 (07:54→20:06)
[2024-09-23] MEDS: magnesium oxide 400 mg tablet PO (07:55)
[2024-09-23] MEDS: OLANZapine 5 mg ODT PO (07:55)
[2024-09-23] MEDS: pantoprazole DR 40 mg Tablet PO (07:55)
[2024-09-23] MEDS: cyanocobalamin 1,000 mcg Tablet 1000 MCG PO (07:55)
[2024-09-23] MEDS: insulin lispro 100 unit/1 mL SUBCUT ×4 (08:08→20:17)
[2024-09-23 10:38] LABS: Glucose Point of Care 156 mg/dL (70-110)
[2024-09-23] MEDS: haloperidol 5 mg Tablet PO (11:16)
--- NOTE | 2024-09-23 12:05 | P.NPUPN_ITS ---
Subjective NPU 2 Subjective: 68-year-old male with a history of psych osis and depression admitted due to increased confusion, and worsening auditory and visual hallucinations. The patient had continued to appear at times confused. He had stated that he had felt that the [employer] was outside and reported that he was uncertain as to whether the guards were coming for him. He had endorsed auditory and visual hallucinations since the age of 5. He had reported that his mood was fine. He had reported hopes of being able to go home soon. He did not report any side effects from the Abilify increase yet. He had reported that he had simply managed his hallucinations before and stated that he was able to ignore them. Patient appeared social on the milieu and was able to engage in appropriate self-care. Mental Status Exam 2 MSE Comments: Patient is a casually dressed white male who appeared his stated age with fair hygiene and the slow steady gait with some perceivable shuffling noted and limited arm swinging. A prominent intention tremor was noted on examination. There was some evidence of bradykinesia. His mood was described as okay. His affect appeared restricted in range. Speech was monotone in quality, steady in rate and normal in volume. There was no evidence of any psychomotor agitation or psychomotor retardation. His thought process was linear logical and goal-directed. His thought content showed no evidence of homicidal or suicidal ideation. He had endorsed auditory and visual hallucinations describing seeing people that were not there and hearing voices of people in his head intermittently. He did not appear to be responding to internal stimuli. There was some evidence of mild paranoia and ideas of reference. He was alert and oriented to person, year, month, day of the week, but not date. He was oriented to place and name and situation. Past presidents was grossly intact. Recent and remote memory appeared grossly intact. His insight is poor. His judgment is poor. His impulse control appeared fair. Vitals/I&O/Wt Last Vital Signs Temp 98.4 F 09/22/24 14:00 Pulse 67 09/23/24 06:00 Resp 18 09/23/24 06:00 BP 169/84 09/23/24 06:00 Pulse Ox 96 09/23/24 06:00 O2 Del Method Room Air 09/22/24 14:00 Weight last 48 hrs Weight 97.522 kg Data NPU 09/21/24 14:03 09/21/24 14:03 A&P Assessment and plan (1) Bipolar disorder: Qualifiers: Active/Remission status: remission status unspecified Qualified Code(s): F31.9 - Bipolar disorder, unspecified (2) Acute psychosis: (3) Depression: (4) Hypertension: (5) Type 2 diabetes mellitus: (6) Parkinson's disease (tremor, stiffness, slow motion, unstable posture): Plan 68-year-old male reporting an extended history of auditory and visual hallucinations admitted with some reports of bizarre thinking and auditory and visual hallucinations that are worsening leading to his first hospitalization. He does appear to show evidence of symptom suggestive of parkinsonian disease process. #1.? Engage patient in individual milieu and group therapy. #2?? Recommend sober living treatment at the highest level of care to which the patient is willing to commit #3??? Continue Zoloft 200mg daily and abilify 10mg at night. #4?? TO-15 minute checks? #5?? Will attempt to gather collateral information including [facility] records PDMP PDMP Reviewed: Not Reviewed Attestations NPU 2 Medical Necessity Statement*: Inpatient hospitalization is medically necessary and deemed to be the clinically appropriate intervention at this time.? Medications will be initiated and adjusted as clinically indicated.? The patient?s likely length of stay is 1-2 days.? Coding Level of Care Code Acute Code for [facility] Fwd Diagnoses Bipolar disorder F31.9 Active/Remission status: remission status unspecified Acute psychosis F23 Depression F32.A Hypertension I10 Type 2 diabetes mellitus E11.9 Parkinson's disease (tremor, stiffness, slow motion, unstable posture) G20.A1
--- NOTE | 2024-09-23 13:02 | P.PN_ITS ---
Subjective 2 Subjective: Seen this morning. Walking around hallway. Discussed his blood pressure with him. Pressure is slightly elevated. Patient denies any chest pain shortness of breath at this time. Vitals/I&O/Wt Last Vital Signs Temp 98.4 F 09/22/24 14:00 Pulse 67 09/23/24 06:00 Resp 18 09/23/24 06:00 BP 169/84 09/23/24 06:00 Pulse Ox 96 09/23/24 06:00 O2 Del Method Room Air 09/22/24 14:00 Physical Exam 2 Narrative: Lungs clear to auscultation Normal S1-S2 Abdomen soft nontender Sitting up in chair appearing comfortable at this time. Data 09/21/24 14:03 09/21/24 14:03 A&P Assessment and plan (1) Bipolar disorder: Qualifiers: Active/Remission status: remission status unspecified Qualified Code(s): F31.9 - Bipolar disorder, unspecified (2) Acute psychosis: (3) Depression: (4) Hypertension: (5) Type 2 diabetes mellitus: (6) Parkinson's disease (tremor, stiffness, slow motion, unstable posture): Plan Hypertension with diabetes Autonomic dysfunction likely with Parkinson's Blood pressure currently stable on isosorbide mononitrate twice daily regimen, losartan 100 mg daily, hydralazine dose increased to 25 mg 3 times a day Continue aspirin: Will add consistent carb diet and sliding scale 09/23/2024 Continue hydralazine 25 3 times daily Continue losartan 100 daily Continue Imdur 20 twice daily. Will monitor blood pressure and above regimen for now. If blood pressure continues to remain elevated may increase hydralazine to 50 3 times daily. Will check CBC BMP magnesium in a.m. Continue aspirin at this time. PDMP PDMP Reviewed: Not Reviewed Attestations 2 Medical Necessity Statement*: Defer to psychiatry Diagnoses Bipolar disorder F31.9 Active/Remission status: remission status unspecified Acute psychosis F23 Depression F32.A Hypertension I10 Type 2 diabetes mellitus E11.9 Parkinson's disease (tremor, stiffness, slow motion, unstable posture) G20.A1
[2024-09-23 14:00] VITALS: BP 145/72; PULSE 76; RESP 16; TEMP 36.6; O2SAT 98
[2024-09-23 17:22] LABS: Glucose Point of Care 143 mg/dL (70-110)
[2024-09-23] MEDS: atorvastatin 40 mg Tablet PO (17:45)
[2024-09-23] MEDS: tamsulosin 0.4 mg Capsule PO (17:49)
[2024-09-23 19:40] LABS: Glucose Point of Care 176 mg/dL (70-110)
[2024-09-23 19:41] VITALS: BP 98/70; PULSE 69; RESP 18; TEMP 36.4; O2SAT 96
[2024-09-23] MEDS: lamoTRIgine 100 mg Tablet PO (20:06)
[2024-09-23] MEDS: ARIPiprazole 10 mg Tablet PO (20:06)
--- NOTE | 2024-09-23 22:35 | PC.NURSE ---
Pt. came up to the nurses station requesting a blanket. Pt. stated he was complaining it was too cold in there, but he thought it was fine.
--- NOTE | 2024-09-24 00:36 | PC.NURSE ---
Pt. came up to the nurses station and said he was looking at the pictures (camera). Pt. was looking for his stated he thought she was outback.
--- NOTE | 2024-09-24 04:49 | PC.NURSE ---
Pt. having visual hallucinations. Pt. said he saw his granddaughter and she was wearing a white shirt.
[2024-09-24 06:00] VITALS: BP 174/86; PULSE 74; RESP 18; TEMP 36.4; O2SAT 96
[2024-09-24 07:17] LABS: Glucose Point of Care 169 mg/dL (70-110)
[2024-09-24] MEDS: insulin lispro 100 unit/1 mL SUBCUT ×3 (07:38→17:21)
[2024-09-24 07:39] VITALS: BP 174/86
[2024-09-24] MEDS: losartan 50 mg Tablet 100 MG PO (07:39)
[2024-09-24] MEDS: pantoprazole DR 40 mg Tablet PO (07:39)
[2024-09-24] MEDS: isosorbide mononitrate 20 mg Tablet PO ×2 (07:39→17:26)
[2024-09-24] MEDS: cholecalciferol (vitamin D3) 1,000 unit Tablet 1000 UNIT PO (07:39)
[2024-09-24] MEDS: sertraline 100 mg Tablet 200 MG PO (07:40)
[2024-09-24] MEDS: cyanocobalamin 1,000 mcg Tablet 1000 MCG PO (07:40)
[2024-09-24] MEDS: magnesium oxide 400 mg tablet PO (07:40)
[2024-09-24] MEDS: aspirin 81 mg EC Tablet PO (07:40)
[2024-09-24] MEDS: OLANZapine 5 mg ODT PO (07:40)
[2024-09-24] MEDS: hyDROXYzine 25 mg Capsule 50 MG PO ×2 (07:45→20:46)
[2024-09-24] MEDS: hyDRALAzine 10 mg Tablet PO ×3 (07:59→22:08)
[2024-09-24] MEDS: hydroCHLOROthiazide 25 mg Tablet PO (08:00)
--- NOTE | 2024-09-24 08:42 | P.NPUPN_ITS ---
Subjective NPU 2 Subjective: Patient presented today reporting that he is feeling a little better. He reports that the voices are still there but that the speed at which they are coming at him has slowed down since he started the medication. We discussed continuing to monitor this process and possibly increasing the medication. He denied any side effects to the medication. Mental Status Exam 2 MSE Comments: Patient is a casually dressed white male who appeared his stated age with fair hygiene and the slow steady gait with some perceivable shuffling noted and limited arm swinging. A prominent intention tremor was noted on examination. There was some evidence of bradykinesia. His mood was described as okay. His affect appeared restricted in range. Speech was monotone in quality, steady in rate and normal in volume. There was no evidence of any psychomotor agitation or psychomotor retardation. His thought process was linear logical and goal-directed. His thought content showed no evidence of homicidal or suicidal ideation. He had endorsed auditory and visual hallucinations describing seeing people that were not there and hearing voices of people in his head intermittently. He did not appear to be responding to internal stimuli. There was some evidence of mild paranoia and ideas of reference. He was alert and oriented to person, year, month, day of the week, but not date. He was oriented to place and name and situation. Past presidents was grossly intact. Recent and remote memory appeared grossly intact. His insight is poor. His judgment is poor. His impulse control appeared fair. Vitals/I&O/Wt Last Vital Signs Temp 97.6 F 09/24/24 06:00 Pulse 74 09/24/24 06:00 Resp 18 09/24/24 06:00 BP 174/86 09/24/24 07:39 Pulse Ox 96 09/24/24 06:00 O2 Del Method Room Air 09/24/24 06:00 Data NPU 09/24/24 08:30 09/24/24 08:30 A&P Assessment and plan (1) Bipolar disorder: Qualifiers: Active/Remission status: remission status unspecified Qualified Code(s): F31.9 - Bipolar disorder, unspecified (2) Acute psychosis: (3) Depression: (4) Hypertension: (5) Type 2 diabetes mellitus: (6) Parkinson's disease (tremor, stiffness, slow motion, unstable posture): Plan 68-year-old male reporting an extended history of auditory and visual hallucinations admitted with some reports of bizarre thinking and auditory and visual hallucinations that are worsening leading to his first hospitalization. He does appear to show evidence of symptom suggestive of parkinsonian disease process. #1.? Engage patient in individual milieu and group therapy. #2?? Recommend sober living treatment at the highest level of care to which the patient is willing to commit #3??? Continue Zoloft 200mg daily and abilify 10mg at night. #4?? TO-15 minute checks? #5?? Will attempt to gather collateral information [facility] PDMP PDMP Reviewed: Not Reviewed Attestations NPU 2 Medical Necessity Statement*: Inpatient hospitalization is medically necessary and the clinically appropriate intervention at this time.? Medications will be initiated and adjusted as clinically indicated.? The patient?s likely length of stay is 2-3 days.? Coding Level of Care Code Acute Code for g Fwd Diagnoses Bipolar disorder F31.9 Active/Remission status: remission status unspecified Acute psychosis F23 Depression F32.A Hypertension I10 Type 2 diabetes mellitus E11.9 Parkinson's disease (tremor, stiffness, slow motion, unstable posture) G20.A1
[2024-09-24 08:49] LABS: Basophils # 0.1 10^3/uL (0.0-0.1); Basophils % 0.8 %; Eosinophils # 0.3 10^3/uL (0.0-0.8); Eosinophils % 3.4 %; Hematocrit 44.3 % (37-53); Lymphocytes # 2.5 10^3/uL (0.8-4.8); Mean Corpuscular HGB Conc 32.5 g/dL (30-55); Mean Corpuscular Hemoglobin 30.3 pg (27-33); Mean Corpuscular Volume 93.1 fl (82-101); Mean Platelet Volume 9.5 fL (7.4-10.4); Monocytes # 0.7 10^3/uL (0.2-0.9); Monocytes % 7.6 %; Neutrophils # 5.05 10^3/uL (1.8-7.7); Neutrophils % 58.7 %; Nucleated Red Blood Cells % 0 %; Platelet Count 220 10^3/cmm (157-399); Red Blood Count 4.76 10^6/uL (3.85-5.65); Red Cell Distribution Width 13.4 % (12.1-15.1); White Blood Count 8.59 10^3/uL (3.29-11.43)
[2024-09-24 09:05] LABS: Blood Urea Nitrogen 34 mg/dL (8-23); Calcium 9.5 mg/dL (8.5-10.5); Carbon Dioxide 25 mmol/L (22-29); Chloride 98 mmol/L (98-107); Creatinine Clr Calc Pharmacy 64.5838; Glomerular Filtration Rate 55.1 mL/min (90-130); Glucose 305 mg/dL (65-115); Magnesium 2.3 mg/dL (1.7-2.3); Osmolality Calculated 299 mOsm/kg (285-295); Sodium 135 mmol/L (136-145)
[2024-09-24 10:58] LABS: Glucose Point of Care 147 mg/dL (70-110)
[2024-09-24 12:38] LABS: Glucose Point of Care 248 mg/dL (70-110)
[2024-09-24 14:00] VITALS: BP 122/67; PULSE 74; RESP 16; TEMP 37; O2SAT 97
[2024-09-24 17:09] LABS: Glucose Point of Care 205 mg/dL (70-110)
[2024-09-24] MEDS: tamsulosin 0.4 mg Capsule PO (17:26)
[2024-09-24] MEDS: atorvastatin 40 mg Tablet PO (17:26)
[2024-09-24 20:26] VITALS: BP 133/77; PULSE 70; RESP 16; TEMP 36.5; O2SAT 96
[2024-09-24] MEDS: trazodone 50 mg Tablet PO (20:46)
[2024-09-24] MEDS: ARIPiprazole 10 mg Tablet PO (20:46)
[2024-09-24] MEDS: lamoTRIgine 100 mg Tablet PO (20:46)
--- NOTE | 2024-09-24 21:08 | PC.NURSE ---
Pt. blood sugar was 94 so per sliding scale no insulin was given.
--- NOTE | 2024-09-25 03:12 | PC.NURSE ---
Pt. came up to nurses station and said he was waiting for his ride that he had to go to class. Pt. has not slept much thus far this shift.
[2024-09-25 06:00] VITALS: BP 172/78; PULSE 75; RESP 18; TEMP 36.4; O2SAT 97
[2024-09-25 07:28] LABS: Glucose Point of Care 183 mg/dL (70-110)
[2024-09-25 08:28] VITALS: BP 172/78
[2024-09-25] MEDS: aspirin 81 mg EC Tablet PO (08:28)
[2024-09-25] MEDS: cyanocobalamin 1,000 mcg Tablet 1000 MCG PO (08:28)
[2024-09-25] MEDS: pantoprazole DR 40 mg Tablet PO (08:28)
[2024-09-25] MEDS: magnesium oxide 400 mg tablet PO (08:28)
[2024-09-25] MEDS: hydroCHLOROthiazide 25 mg Tablet PO (08:28)
[2024-09-25] MEDS: isosorbide mononitrate 20 mg Tablet PO ×2 (08:28→17:36)
[2024-09-25] MEDS: hyDRALAzine 10 mg Tablet PO ×3 (08:28→20:26)
[2024-09-25] MEDS: losartan 50 mg Tablet 100 MG PO (08:28)
[2024-09-25] MEDS: sertraline 100 mg Tablet 200 MG PO (08:28)
[2024-09-25] MEDS: cholecalciferol (vitamin D3) 1,000 unit Tablet 1000 UNIT PO (08:28)
[2024-09-25] MEDS: insulin lispro 100 unit/1 mL SUBCUT ×4 (08:29→20:25)
[2024-09-25 11:13] LABS: Glucose Point of Care 255 mg/dL (70-110)
[2024-09-25 14:00] VITALS: BP 157/62; PULSE 75; RESP 18; TEMP 36.7; O2SAT 97
--- NOTE | 2024-09-25 16:30 | P.NPUPN_ITS ---
Subjective NPU 2 Subjective: Patient presented today reporting that things are going fine. He reports that he is having some improvement in the hallucinations and that things do seem to be getting better. He expressed concern because he reported that his fell today on the stairs but that she was all right. He reports that he is somewhat frustrated or ashamed that he is here. We discussed making sure he had an appropriate support plan moving forward and that enough reduction in symptoms had occurred for him to manage as an outpatient. He denied any side effects to the medication and we talked about the possibility of increasing the dose tomorrow. Mental Status Exam 2 MSE Comments: Patient is a casually dressed white male who appeared his stated age with fair hygiene and the slow steady gait with some perceivable shuffling noted and limited arm swinging. A prominent intention tremor was noted on examination. There was some evidence of bradykinesia. His mood was described as okay. His affect appeared restricted in range. Speech was monotone in quality, steady in rate and normal in volume. There was no evidence of any psychomotor agitation or psychomotor retardation. His thought process was linear logical and goal-directed. His thought content showed no evidence of homicidal or suicidal ideation. He had endorsed auditory and visual hallucinations describing seeing people that were not there and hearing voices of people in his head intermittently. He did not appear to be responding to internal stimuli. There was some evidence of mild paranoia and ideas of reference. He was alert and oriented to person, year, month, day of the week, but not date. He was oriented to place and name and situation. Past presidents was grossly intact. Recent and remote memory appeared grossly intact. His insight is poor. His judgment is poor. His impulse control appeared fair. Vitals/I&O/Wt Last Vital Signs Temp 98.1 F 09/25/24 14:00 Pulse 75 09/25/24 14:00 Resp 18 09/25/24 14:00 BP 157/62 09/25/24 14:00 Pulse Ox 97 09/25/24 14:00 O2 Del Method Room Air 09/24/24 14:00 Data NPU 09/24/24 08:30 09/24/24 08:30 A&P Assessment and plan (1) Bipolar disorder: Qualifiers: Active/Remission status: remission status unspecified Qualified Code(s): F31.9 - Bipolar disorder, unspecified (2) Acute psychosis: (3) Depression: (4) Hypertension: (5) Type 2 diabetes mellitus: (6) Parkinson's disease (tremor, stiffness, slow motion, unstable posture): Plan 68-year-old male reporting an extended history of auditory and visual hallucinations admitted with some reports of bizarre thinking and auditory and visual hallucinations that are worsening leading to his first hospitalization. He does appear to show evidence of symptom suggestive of parkinsonian disease process. #1.? Engage patient in individual milieu and group therapy. #2?? Recommend sober living treatment at the highest level of care to which the patient is willing to commit #3??? Continue Zoloft 200mg daily and abilify 10mg at night. #4?? TO-15 minute checks? #5?? Will attempt to gather collateral information including [facility] PDMP PDMP Reviewed: Not Reviewed Involuntary Hold Information 2 Hold Status: Date/Time Hold Expires: VOLUNTARY Attestations NPU 2 Medical Necessity Statement*: Inpatient hospitalization is medically necessary and the clinically appropriate intervention at this time.? Medications will be initiated and adjusted as clinically indicated.? The patient?s likely length of stay is 2-3 days.? Coding Level of Care Code Acute Code for [facility] Fwd Diagnoses Bipolar disorder F31.9 Active/Remission status: remission status unspecified Acute psychosis F23 Depression F32.A Hypertension I10 Type 2 diabetes mellitus E11.9 Parkinson's disease (tremor, stiffness, slow motion, unstable posture) G20.A1
[2024-09-25 17:07] LABS: Glucose Point of Care 185 mg/dL (70-110)
[2024-09-25] MEDS: atorvastatin 40 mg Tablet PO (17:36)
[2024-09-25] MEDS: tamsulosin 0.4 mg Capsule PO (17:36)
[2024-09-25 20:09] LABS: Glucose Point of Care 181 mg/dL (70-110)
[2024-09-25 20:10] VITALS: BP 148/72; PULSE 63; RESP 16; TEMP 36.4; O2SAT 98
[2024-09-25] MEDS: lamoTRIgine 100 mg Tablet PO (20:26)
[2024-09-25] MEDS: ARIPiprazole 10 mg Tablet PO (20:26)
[2024-09-25] MEDS: trazodone 50 mg Tablet PO (20:26)
[2024-09-26 06:00] VITALS: BP 136/77; PULSE 72; RESP 18; TEMP 36.6; O2SAT 96
[2024-09-26 07:41] VITALS: BP 136/72
[2024-09-26 07:49] LABS: Glucose Point of Care 159 mg/dL (70-110)
[2024-09-26 08:50] VITALS: BP 136/72
[2024-09-26] MEDS: aspirin 81 mg EC Tablet PO (08:50)
[2024-09-26] MEDS: losartan 50 mg Tablet 100 MG PO (08:50)
[2024-09-26] MEDS: sertraline 100 mg Tablet 200 MG PO (08:50)
[2024-09-26] MEDS: cholecalciferol (vitamin D3) 1,000 unit Tablet 1000 UNIT PO (08:50)
[2024-09-26] MEDS: hyDRALAzine 10 mg Tablet PO ×3 (08:51→20:31)
[2024-09-26] MEDS: magnesium oxide 400 mg tablet PO (08:51)
[2024-09-26] MEDS: hydroCHLOROthiazide 25 mg Tablet PO (08:51)
[2024-09-26] MEDS: cyanocobalamin 1,000 mcg Tablet 1000 MCG PO (08:51)
[2024-09-26] MEDS: isosorbide mononitrate 20 mg Tablet PO ×2 (08:51→17:52)
[2024-09-26] MEDS: insulin lispro 100 unit/1 mL SUBCUT ×3 (08:51→20:13)
[2024-09-26] MEDS: pantoprazole DR 40 mg Tablet PO (08:51)
[2024-09-26 11:43] LABS: Glucose Point of Care 247 mg/dL (70-110)
[2024-09-26 14:00] VITALS: BP 110/62; PULSE 69; RESP 17; TEMP 36.6; O2SAT 93
--- NOTE | 2024-09-26 14:26 | PM.MISC ---
Miscellaneous Note Note: Patient not physically seen today however chart has been followed peripherally daily. Monitoring blood pressure. Blood pressure seems to be much better controlled in the last 24 hours. We will continue current medications at this time. Will resee patient as needed while he is hospitalized here. Will continue to follow peripherally.
--- NOTE | 2024-09-26 16:40 | P.NPUPN_ITS ---
Subjective NPU 2 Subjective: Patient presented today reporting that he is doing fine. Unlike previous discussions today he was very focused on some experiences he has had over the last 24 hours and will clearly perceptually off. He talked about trucks backing up to his window and letting things in and something about the ground having qualities that he did not have. We discussed the risks, benefits and alternatives of increasing his Abilify to 15 mg p.o. nightly tonight and he understood and agreed to proceed as is documented in this note. He did not report any side effects to his medications. Mental Status Exam 2 MSE Comments: Patient is a casually dressed white male who appeared his stated age with fair hygiene and the slow steady gait with some perceivable shuffling noted and limited arm swinging. A prominent intention tremor was noted on examination. There was some evidence of bradykinesia. His mood was described as okay. His affect appeared restricted in range. Speech was monotone in quality, steady in rate and normal in volume. There was no evidence of any psychomotor agitation or psychomotor retardation. His thought process was linear logical and goal-directed. His thought content showed no evidence of homicidal or suicidal ideation. Today he spoke about people backing up trucks to his window and some other clearly perceptual disturbances visual and auditory in nature. He did not appear to be responding to internal stimuli. There was some evidence of mild paranoia and ideas of reference. He was alert and oriented to person, year, month, day of the week, but not date. He was oriented to place and name and situation. Past presidents was grossly intact. Recent and remote memory appeared grossly intact. His insight is poor. His judgment is poor. His impulse control appeared fair. Vitals/I&O/Wt Last Vital Signs Temp 98 F 09/26/24 14:00 Pulse 69 09/26/24 14:00 Resp 17 09/26/24 14:00 BP 110/62 09/26/24 14:00 Pulse Ox 93 09/26/24 14:00 O2 Del Method Room Air 09/24/24 14:00 Weight last 48 hrs Weight 99.881 kg Data NPU 09/24/24 08:30 09/24/24 08:30 A&P Assessment and plan (1) Bipolar disorder: Qualifiers: Active/Remission status: remission status unspecified Qualified Code(s): F31.9 - Bipolar disorder, unspecified (2) Acute psychosis: (3) Depression: (4) Hypertension: (5) Type 2 diabetes mellitus: (6) Parkinson's disease (tremor, stiffness, slow motion, unstable posture): Plan 68-year-old male reporting an extended history of auditory and visual hallucinations admitted with some reports of bizarre thinking and auditory and visual hallucinations that are worsening leading to his first hospitalization. He does appear to show evidence of symptom suggestive of parkinsonian disease process. 1. Engage patient in individual milieu and group therapy. 2. Recommend sober living treatment at the highest level of care to which the patient is willing to commit 3. Continue Zoloft 200mg daily and abilify 10mg at night. Increase Abilify to 15 mg p.o. nightly. 4. Continue every 15 minute checks for safety. ? PDMP PDMP Reviewed: Not Reviewed Involuntary Hold Information 2 Hold Status: Date/Time Hold Expires: VOLUNTARY Attestations NPU 2 Medical Necessity Statement*: Inpatient hospitalization is medically necessary and the clinically appropriate intervention at this time.? Medications will be initiated and adjusted as clinically indicated.? The patient?s likely length of stay is 2-3 days.? Coding Level of Care Code Acute Code for [facility] Fwd Diagnoses Bipolar disorder F31.9 Active/Remission status: remission status unspecified Acute psychosis F23 Depression F32.A Hypertension I10 Type 2 diabetes mellitus E11.9 Parkinson's disease (tremor, stiffness, slow motion, unstable posture) G20.A1
[2024-09-26 17:09] LABS: Glucose Point of Care 134 mg/dL (70-110)
[2024-09-26] MEDS: tamsulosin 0.4 mg Capsule PO (17:52)
[2024-09-26] MEDS: atorvastatin 40 mg Tablet PO (17:52)
[2024-09-26] MEDS: hyDROXYzine 25 mg Capsule 50 MG PO (19:42)
[2024-09-26] MEDS: lamoTRIgine 100 mg Tablet PO (19:42)
[2024-09-26] MEDS: haloperidol 5 mg Tablet PO (19:42)
[2024-09-26] MEDS: ARIPiprazole 10 mg Tablet 15 MG PO (19:58)
[2024-09-26] MEDS: trazodone 50 mg Tablet PO (19:59)
[2024-09-26] MEDS: OLANZapine 5 mg ODT PO (19:59)
[2024-09-26 20:22] LABS: Glucose Point of Care 188 mg/dL (70-110)
[2024-09-26 20:22] LABS: Glucose Point of Care 203 mg/dL (70-110)
[2024-09-26 21:30] VITALS: BP 110/61; PULSE 72; RESP 18; TEMP 36.4; O2SAT 95
[2024-09-27 06:00] VITALS: BP 166/83; PULSE 82; RESP 17; O2SAT 95
--- NOTE | 2024-09-27 06:36 | PC.NURSE ---
Pt. went to sleep around 12:30am and was up at 0615 am.
[2024-09-27 07:23] LABS: Glucose Point of Care 173 mg/dL (70-110)
[2024-09-27 08:12] VITALS: BP 166/83
[2024-09-27] MEDS: isosorbide mononitrate 20 mg Tablet PO ×2 (08:12→17:54)
[2024-09-27] MEDS: pantoprazole DR 40 mg Tablet PO (08:12)
[2024-09-27] MEDS: magnesium oxide 400 mg tablet PO (08:12)
[2024-09-27] MEDS: hyDRALAzine 10 mg Tablet PO ×3 (08:12→20:51)
[2024-09-27] MEDS: losartan 50 mg Tablet 100 MG PO (08:12)
[2024-09-27] MEDS: cyanocobalamin 1,000 mcg Tablet 1000 MCG PO (08:13)
[2024-09-27] MEDS: cholecalciferol (vitamin D3) 1,000 unit Tablet 1000 UNIT PO (08:13)
[2024-09-27] MEDS: hydroCHLOROthiazide 25 mg Tablet PO (08:13)
[2024-09-27] MEDS: insulin lispro 100 unit/1 mL SUBCUT ×4 (08:13→20:52)
[2024-09-27] MEDS: sertraline 100 mg Tablet 200 MG PO (08:13)
[2024-09-27] MEDS: aspirin 81 mg EC Tablet PO (08:13)
[2024-09-27 11:20] LABS: Glucose Point of Care 202 mg/dL (70-110)
[2024-09-27 14:00] VITALS: BP 137/68; PULSE 66; RESP 16; TEMP 36.4; O2SAT 93
[2024-09-27 17:24] LABS: Glucose Point of Care 166 mg/dL (70-110)
[2024-09-27] MEDS: NON-FORMULARY MEDICATION (Empagliflozin 25 mg Tablet) 12.5 EACH PO (17:41)
[2024-09-27] MEDS: atorvastatin 40 mg Tablet PO (17:41)
[2024-09-27] MEDS: tamsulosin 0.4 mg Capsule PO (17:41)
--- NOTE | 2024-09-27 18:18 | P.NPUPN_ITS ---
Subjective NPU 2 Subjective: Patient presented today reporting that things are going okay. He denied any of the things we talked about yesterday no types of experiences that were not noted by others. He endorsed that there were no side effects or concerns from the increase in his Abilify. 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 He talked about things seem to go much better today and hoping for continued improvement and the possibility of maybe discharge Friday if things continue to go better. Mental Status Exam 2 MSE Comments: Patient is a casually dressed white male who appeared his stated age with fair hygiene and the slow steady gait with some perceivable shuffling noted and limited arm swinging. A prominent intention tremor was noted on examination. There was some evidence of bradykinesia. His mood was described as okay. His affect appeared restricted in range. Speech was monotone in quality, steady in rate and normal in volume. There was no evidence of any psychomotor agitation or psychomotor retardation. His thought process was linear logical and goal-directed. His thought content showed no evidence of homicidal or suicidal ideation. Today he denied any perceptual disturbances and noticing any people backing up trucks to his window and or other clearly perceptual disturbances . He did not appear to be responding to internal stimuli. There was no evidence of mild paranoia and ideas of reference. He was alert and oriented to person, year, month, day of the week, but not date. He was oriented to place and name and situation. Past presidents was grossly intact. Recent and remote memory appeared grossly intact. His insight is poor. His judgment is poor. His impulse control appeared fair. Vitals/I&O/Wt Last Vital Signs Temp 97.6 F 09/27/24 14:00 Pulse 66 09/27/24 14:00 Resp 16 09/27/24 14:00 BP 137/68 09/27/24 14:00 Pulse Ox 93 09/27/24 14:00 O2 Del Method Room Air 09/24/24 14:00 Weight last 48 hrs Weight 99.881 kg Data NPU 09/24/24 08:30 09/24/24 08:30 A&P Assessment and plan (1) Bipolar disorder: Qualifiers: Active/Remission status: remission status unspecified Qualified Code(s): F31.9 - Bipolar disorder, unspecified (2) Acute psychosis: (3) Depression: (4) Hypertension: (5) Type 2 diabetes mellitus: (6) Parkinson's disease (tremor, stiffness, slow motion, unstable posture): Plan 68-year-old male reporting an extended history of auditory and visual hallucinations admitted with some reports of bizarre thinking and auditory and visual hallucinations that are worsening leading to his first hospitalization. He does appear to show evidence of symptom suggestive of parkinsonian disease process. 1. Engage patient in individual milieu and group therapy. 2. Recommend sober living treatment at the highest level of care to which the patient is willing to commit 3. Continue Zoloft 200mg daily and abilify 10mg at night. Increased Abilify to 15 mg p.o. nightly. 4. Continue every 15 minute checks for safety. ? PDMP PDMP Reviewed: Not Reviewed Involuntary Hold Information 2 Hold Status: Date/Time Hold Expires: VOLUNTARY Attestations NPU 2 Medical Necessity Statement*: Inpatient hospitalization is medically necessary and the clinically appropriate intervention at this time.? Medications will be initiated and adjusted as clinically indicated.? The patient?s likely length of stay is 2-3 days.? Coding Level of Care Code Acute Code for [facility] Fw Diagnoses Bipolar disorder F31.9 Active/Remission status: remission status unspecified Acute psychosis F23 Depression F32.A Hypertension I10 Type 2 diabetes mellitus E11.9 Parkinson's disease (tremor, stiffness, slow motion, unstable posture) G20.A1
[2024-09-27 19:46] LABS: Glucose Point of Care 174 mg/dL (70-110)
[2024-09-27 19:55] VITALS: BP 140/79; PULSE 74; RESP 18; TEMP 36.7; O2SAT 96
[2024-09-27] MEDS: ARIPiprazole 10 mg Tablet 15 MG PO (20:51)
[2024-09-27] MEDS: hyDROXYzine 25 mg Capsule 50 MG PO (20:51)
[2024-09-27] MEDS: trazodone 50 mg Tablet PO (20:51)
[2024-09-27] MEDS: lamoTRIgine 100 mg Tablet PO (20:51)
[2024-09-28 06:00] VITALS: BP 143/62; PULSE 81; RESP 18; TEMP 36.4; O2SAT 96
[2024-09-28 07:50] LABS: Glucose Point of Care 139 mg/dL (70-110)
[2024-09-28] MEDS: pantoprazole DR 40 mg Tablet PO (08:21)
[2024-09-28] MEDS: sertraline 100 mg Tablet 200 MG PO (08:21)
[2024-09-28] MEDS: NON-FORMULARY MEDICATION (Empagliflozin 25 mg Tablet) 12.5 EACH PO (08:21)
[2024-09-28] MEDS: losartan 50 mg Tablet 100 MG PO (08:22)
[2024-09-28 11:29] LABS: Glucose Point of Care 166 mg/dL (70-110)
[2024-09-28] MEDS: aspirin 81 mg EC Tablet PO (11:46)
[2024-09-28] MEDS: cholecalciferol (vitamin D3) 1,000 unit Tablet 1000 UNIT PO (11:46)
[2024-09-28] MEDS: cyanocobalamin 1,000 mcg Tablet 1000 MCG PO (11:46)
[2024-09-28] MEDS: isosorbide mononitrate 20 mg Tablet PO ×2 (11:47→17:28)
[2024-09-28] MEDS: hydroCHLOROthiazide 25 mg Tablet PO (11:47)
[2024-09-28] MEDS: hyDRALAzine 10 mg Tablet PO ×3 (11:47→21:14)
[2024-09-28] MEDS: magnesium oxide 400 mg tablet PO (11:47)
[2024-09-28] MEDS: insulin lispro 100 unit/1 mL SUBCUT ×3 (11:52→21:14)
[2024-09-28 14:00] VITALS: BP 116/68; PULSE 66; RESP 16; TEMP 36.5; O2SAT 96
--- NOTE | 2024-09-28 15:30 | PC.NURSE ---
DELUSIONAL STATEMENTS PATIENT'S DAUGHTER STATED AFTER VISITATION THAT PATIENT IS MAKING DELUSIONAL STATEMENTS, SUCH THERE IS COCAINE IN THE WHITE CAR BY HIS 'S CARE, THAT THE POLICE HAVE BEEN COMING TO THE UNIT AND TOOK FOUR PATIENT S YESTERDAY. PATIENT'S DAUGHTER SAID THAT PATIENT IS NOT READY TO BE DISCHARGED.
--- NOTE | 2024-09-28 16:11 | W.PM.NPUPNS ---
Subjective NPU Subjective: Patient presents today reporting that things are going well. He denied any perceptual issues or visions of any strange occurrences. He did get a visit from a family member who expressed him reporting some odd things to his building. We discussed the fact that there is some thoughts that this may be reflective of a cluster a personality disorder. However we also discussed the fact that this could represent some emergence of a dementing process as well. We discussed that this point we need to identify if there are any safety concerns and make sure there are no unsafe circumstances at home i.e. gums excetra and then we will discuss where discharge fits into that paradigm. He denied any side effects to his medication. Mental Status Exam MSE Comments: Patient is a casually dressed white male who appeared his stated age with fair hygiene and the slow steady gait with some perceivable shuffling noted and limited arm swinging. A prominent intention tremor was noted on examination. There was some evidence of bradykinesia. His mood was described as okay. His affect appeared restricted in range. Speech was monotone in quality, steady in rate and normal in volume. There was no evidence of any psychomotor agitation or psychomotor retardation. His thought process was linear logical and goal-directed. His thought content showed no evidence of homicidal or suicidal ideation. Today he denied any perceptual disturbances and noticing any people backing up trucks to his window and or other clearly perceptual disturbances . He did not appear to be responding to internal stimuli. There was no evidence of mild paranoia and ideas of reference. He was alert and oriented to person, year, month, day of the week, but not date. He was oriented to place and name and situation. Past presidents was grossly intact. Recent and remote memory appeared grossly intact. His insight is poor. His judgment is poor. His impulse control appeared fair. Vitals/I&O/Wt Last Vital Signs Temp 97.6 F 09/28/24 06:00 Pulse 81 09/28/24 06:00 Resp 18 09/28/24 06:00 BP 143/62 09/28/24 06:00 Pulse Ox 96 09/28/24 06:00 O2 Del Method Room Air 09/28/24 06:00 Data NPU 09/24/24 08:30 09/24/24 08:30 A&P Assessment and plan (1) Bipolar disorder: Qualifiers: Active/Remission status: remission status unspecified Qualified Code(s): F31.9 - Bipolar disorder, unspecified (2) Acute psychosis: (3) Depression: (4) Hypertension: (5) Type 2 diabetes mellitus: (6) Parkinson's disease (tremor, stiffness, slow motion, unstable posture): Plan 68-year-old male reporting an extended history of auditory and visual hallucinations admitted with some reports of bizarre thinking and auditory and visual hallucinations that are worsening leading to his first hospitalization. He does appear to show evidence of symptom suggestive of parkinsonian disease process. 1. Engage patient in individual milieu and group therapy. 2. Recommend sober living treatment at the highest level of care to which the patient is willing to commit 3. Continue Zoloft 200mg daily and abilify 10mg at night. Increased Abilify to 15 mg p.o. nightly. 4. Continue every 15 minute checks for safety. ? PDMP PDMP Reviewed: Not Reviewed Involuntary Hold Information Hold Status: Date/Time Hold Expires: VOLUNTARY Attestations NPU Medical Necessity Statement*: Inpatient hospitalization is medically necessary and the clinically appropriate intervention at this time.? Medications will be initiated and adjusted as clinically indicated.? The patient?s likely length of stay is 2-3 days.? Coding Level of Care Code Acute Code for [facility] Diagnoses Bipolar disorder F31.9 Active/Remission status: remission status unspecified Acute psychosis F23 Depression F32.A Hypertension I10 Type 2 diabetes mellitus E11.9 Parkinson's disease (tremor, stiffness, slow motion, unstable posture) G20.A1
[2024-09-28 17:12] LABS: Glucose Point of Care 202 mg/dL (70-110)
[2024-09-28] MEDS: atorvastatin 40 mg Tablet PO (17:28)
[2024-09-28] MEDS: tamsulosin 0.4 mg Capsule PO (17:28)
[2024-09-28 19:57] LABS: Glucose Point of Care 169 mg/dL (70-110)
[2024-09-28 19:58] VITALS: BP 128/68; PULSE 80; RESP 18; TEMP 37.2; O2SAT 97
[2024-09-28] MEDS: trazodone 50 mg Tablet PO (21:14)
[2024-09-28] MEDS: hyDROXYzine 25 mg Capsule 50 MG PO (21:14)
[2024-09-28] MEDS: lamoTRIgine 100 mg Tablet PO (21:14)
[2024-09-28] MEDS: ARIPiprazole 10 mg Tablet 15 MG PO (21:14)
[2024-09-29 06:00] VITALS: BP 106/64; PULSE 79; RESP 18; TEMP 36.9; O2SAT 96
[2024-09-29 07:31] LABS: Glucose Point of Care 151 mg/dL (70-110)
[2024-09-29] MEDS: aspirin 81 mg EC Tablet PO (08:04)
[2024-09-29] MEDS: hyDRALAzine 10 mg Tablet PO ×3 (08:04→20:37)
[2024-09-29] MEDS: losartan 50 mg Tablet 100 MG PO (08:04)
[2024-09-29] MEDS: pantoprazole DR 40 mg Tablet PO (08:04)
[2024-09-29] MEDS: cholecalciferol (vitamin D3) 1,000 unit Tablet 1000 UNIT PO (08:04)
[2024-09-29] MEDS: sertraline 100 mg Tablet 200 MG PO (08:04)
[2024-09-29] MEDS: cyanocobalamin 1,000 mcg Tablet 1000 MCG PO (08:05)
[2024-09-29] MEDS: magnesium oxide 400 mg tablet PO (08:05)
[2024-09-29] MEDS: isosorbide mononitrate 20 mg Tablet PO ×2 (08:05→18:01)
[2024-09-29] MEDS: hydroCHLOROthiazide 25 mg Tablet PO (08:05)
[2024-09-29] MEDS: NON-FORMULARY MEDICATION (Empagliflozin 25 mg Tablet) 12.5 EACH PO (08:07)
[2024-09-29] MEDS: insulin lispro 100 unit/1 mL SUBCUT ×4 (08:13→20:35)
[2024-09-29 11:45] LABS: Glucose Point of Care 270 mg/dL (70-110)
[2024-09-29 14:00] VITALS: BP 98/52; PULSE 91; RESP 18; TEMP 36.8; O2SAT 94
[2024-09-29 17:03] LABS: Glucose Point of Care 163 mg/dL (70-110)
[2024-09-29] MEDS: tamsulosin 0.4 mg Capsule PO (18:01)
[2024-09-29] MEDS: atorvastatin 40 mg Tablet PO (18:01)
--- NOTE | 2024-09-29 18:32 | P.NPUPN_ITS ---
Subjective NPU 2 Subjective: Patient presented today reporting that he is doing okay. Family continued to report strange topics of discussion upon visitation. We discussed the possibility for discharge and wanting to make sure that we have not missed anything. So we discussed getting a FREDO evaluation and possibly getting a neurology consult including the risks, benefits and alternatives and he understood and agreed to proceed as is documented in this note. He denied any side effects to his medication. Mental Status Exam 2 MSE Comments: Patient is a casually dressed white male who appeared his stated age with fair hygiene and the slow steady gait with some perceivable shuffling noted and limited arm swinging. A prominent intention tremor was noted on examination. There was some evidence of bradykinesia. His mood was described as okay. His affect appeared restricted in range. Speech was monotone in quality, steady in rate and normal in volume. There was no evidence of any psychomotor agitation or psychomotor retardation. His thought process was linear logical and goal-directed. His thought content showed no evidence of homicidal or suicidal ideation. Today he denied any perceptual disturbances and noticing any people backing up trucks to his window and or other clearly perceptual disturbances . He did not appear to be responding to internal stimuli. There was no evidence of mild paranoia and ideas of reference. He was alert and oriented to person, year, month, day of the week, but not date. He was oriented to place and name and situation. Past presidents was grossly intact. Recent and remote memory appeared grossly intact. His insight is poor. His judgment is poor. His impulse control appeared fair. Vitals/I&O/Wt Last Vital Signs Temp 97.6 F 09/29/24 20:01 Pulse 77 09/29/24 20:01 Resp 18 09/29/24 20:01 BP 100/60 09/29/24 20:01 Pulse Ox 96 09/29/24 20:01 O2 Del Method Room Air 09/29/24 20:01 Data NPU 09/24/24 08:30 09/24/24 08:30 A&P Assessment and plan (1) Bipolar disorder: Qualifiers: Active/Remission status: remission status unspecified Qualified Code(s): F31.9 - Bipolar disorder, unspecified (2) Acute psychosis: (3) Depression: (4) Hypertension: (5) Type 2 diabetes mellitus: (6) Parkinson's disease (tremor, stiffness, slow motion, unstable posture): Plan 68-year-old male reporting an extended history of auditory and visual hallucinations admitted with some reports of bizarre thinking and auditory and visual hallucinations that are worsening leading to his first hospitalization. He does appear to show evidence of symptom suggestive of parkinsonian disease process. 1. Engage patient in individual milieu and group therapy. 2. Recommend sober living treatment at the highest level of care to which the patient is willing to commit 3. Continue Zoloft 200mg daily and abilify 10mg at night. Increased Abilify to 15 mg p.o. nightly. 4. Continue every 15 minute checks for safety. ? 5. Obtain a FREDO evaluation and consider neurology consult. PDMP PDMP Reviewed: Not Reviewed Involuntary Hold Information 2 Hold Status: Date/Time Hold Expires: VOLUNTARY Attestations NPU 2 Medical Necessity Statement*: Inpatient hospitalization is medically necessary and the clinically appropriate intervention at this time.? Medications will be initiated and adjusted as clinically indicated.? The patient?s likely length of stay is 1-3 days.? Coding Level of Care Code Acute Code for [facility] Fwd Diagnoses Bipolar disorder F31.9 Active/Remission status: remission status unspecified Acute psychosis F23 Depression F32.A Hypertension I10 Type 2 diabetes mellitus E11.9 Parkinson's disease (tremor, stiffness, slow motion, unstable posture) G20.A1
[2024-09-29 19:54] LABS: Glucose Point of Care 270 mg/dL (70-110)
[2024-09-29 20:01] VITALS: BP 100/60; PULSE 77; RESP 18; TEMP 36.4; O2SAT 96
[2024-09-29] MEDS: hyDROXYzine 25 mg Capsule 50 MG PO (20:36)
[2024-09-29] MEDS: trazodone 50 mg Tablet PO (20:36)
[2024-09-29] MEDS: lamoTRIgine 100 mg Tablet PO (20:37)
[2024-09-29] MEDS: ARIPiprazole 10 mg Tablet 15 MG PO (20:37)
[2024-09-30 03:58] VITALS: BP 125/69; PULSE 68; RESP 18; TEMP 36.3; O2SAT 96
[2024-09-30 07:18] LABS: Glucose Point of Care 175 mg/dL (70-110)
[2024-09-30] MEDS: sertraline 100 mg Tablet 200 MG PO (08:25)
[2024-09-30] MEDS: hydroCHLOROthiazide 25 mg Tablet PO (08:27)
[2024-09-30] MEDS: pantoprazole DR 40 mg Tablet PO (08:27)
[2024-09-30] MEDS: aspirin 81 mg EC Tablet PO (08:27)
[2024-09-30] MEDS: hyDRALAzine 10 mg Tablet PO ×3 (08:27→20:11)
[2024-09-30] MEDS: cyanocobalamin 1,000 mcg Tablet 1000 MCG PO (08:27)
[2024-09-30] MEDS: magnesium oxide 400 mg tablet PO (08:27)
[2024-09-30] MEDS: losartan 50 mg Tablet 100 MG PO (08:27)
[2024-09-30] MEDS: insulin lispro 100 unit/1 mL SUBCUT ×4 (08:28→21:05)
[2024-09-30] MEDS: cholecalciferol (vitamin D3) 1,000 unit Tablet 1000 UNIT PO (08:28)
[2024-09-30] MEDS: isosorbide mononitrate 20 mg Tablet PO ×2 (08:44→18:03)
[2024-09-30] MEDS: NON-FORMULARY MEDICATION (Empagliflozin 25 mg Tablet) 12.5 EACH PO (08:44)
[2024-09-30 11:20] LABS: Glucose Point of Care 178 mg/dL (70-110)
[2024-09-30 14:00] VITALS: BP 159/88; PULSE 71; RESP 16; TEMP 36.4; O2SAT 97
--- NOTE | 2024-09-30 16:09 | P.NPUPN_ITS ---
Subjective NPU 2 Subjective: Patient presented today reporting that he is doing fine. He endorses that he feels ready to go home but we did discuss his family struggling with feeling like there is some other things that need to be managed. We talked about likely having a neurology consult and that we are going to get some laboratory studies which we will attempt to follow-up prior to discharge. He denied any additional issues or side effects to medications. Medications: Medication Review Details: 6 Mental Status Exam 2 MSE Comments: Patient is a casually dressed white male who appeared his stated age with fair hygiene and the slow steady gait with some perceivable shuffling noted and limited arm swinging. A prominent intention tremor was noted on examination. There was some evidence of bradykinesia. His mood was described as okay. His affect appeared restricted in range. Speech was monotone in quality, steady in rate and normal in volume. There was no evidence of any psychomotor agitation or psychomotor retardation. His thought process was linear logical and goal-directed. His thought content showed no evidence of homicidal or suicidal ideation. Today he denied any perceptual disturbances and noticing any people backing up trucks to his window and or other clearly perceptual disturbances . He did not appear to be responding to internal stimuli. There was no evidence of mild paranoia and ideas of reference. He was alert and oriented to person, year, month, day of the week, but not date. He was oriented to place and name and situation. Past presidents was grossly intact. Recent and remote memory appeared grossly intact. His insight is poor. His judgment is poor. His impulse control appeared fair. Vitals/I&O/Wt Last Vital Signs Temp 97.5 F L 09/30/24 14:00 Pulse 71 09/30/24 14:00 Resp 16 09/30/24 14:00 BP 159/88 09/30/24 14:00 Pulse Ox 97 09/30/24 14:00 O2 Del Method Room Air 09/30/24 14:00 Data NPU 09/24/24 08:30 09/24/24 08:30 A&P Assessment and plan (1) Bipolar disorder: Qualifiers: Active/Remission status: remission status unspecified Qualified Code(s): F31.9 - Bipolar disorder, unspecified (2) Acute psychosis: (3) Depression: (4) Hypertension: (5) Type 2 diabetes mellitus: (6) Parkinson's disease (tremor, stiffness, slow motion, unstable posture): Plan 68-year-old male reporting an extended history of auditory and visual hallucinations admitted with some reports of bizarre thinking and auditory and visual hallucinations that are worsening leading to his first hospitalization. He does appear to show evidence of symptom suggestive of parkinsonian disease process. 1. Engage patient in individual milieu and group therapy. 2. Recommend sober living treatment at the highest level of care to which the patient is willing to commit 3. Continue Zoloft 200mg daily and abilify 10mg at night. Increased Abilify to 15 mg p.o. nightly. 4. Continue every 15 minute checks for safety. ? 5. Obtain a FREDO evaluation and consider neurology consult. Got some basic Alzheimer labs and will follow-up with findings. Likely discharge tomorrow. PDMP PDMP Reviewed: Not Reviewed Involuntary Hold Information 2 Hold Status: Date/Time Hold Expires: VOLUNTARY Attestations NPU 2 Medical Necessity Statement*: Inpatient hospitalization is medically necessary and the clinically appropriate intervention at this time.? Medications will be initiated and adjusted as clinically indicated.? The patient?s likely length of stay is 1-3 days.? Coding Level of Care Code Acute Code for [facility] Fwd Diagnoses Bipolar disorder F31.9 Active/Remission status: remission status unspecified Acute psychosis F23 Depression F32.A Hypertension I10 Type 2 diabetes mellitus E11.9 Parkinson's disease (tremor, stiffness, slow motion, unstable posture) G20.A1
[2024-09-30 17:30] LABS: Glucose Point of Care 246 mg/dL (70-110)
[2024-09-30 17:54] LABS: Thyroid Stimulating Hormone 1.93 uIU/mL (0.27-4.20); Vitamin B12 1543 pg/mL (232-1245)
[2024-09-30] MEDS: atorvastatin 40 mg Tablet PO (18:03)
[2024-09-30] MEDS: tamsulosin 0.4 mg Capsule PO (18:03)
[2024-09-30 18:05] LABS: Folate Level > 20.0 ng/mL (4.5-32.2)
[2024-09-30 18:16] LABS: HIV 1 & 2 Antibody Non-Reactive (Non-Reactiv); HIV 1 & 2 Antigen Non-Reactive (Non-Reactiv)
[2024-09-30 19:34] LABS: Free T4 Free Thyroxine 1.44 ng/dL (0.82-1.77)
[2024-09-30 19:56] LABS: Rapid Plasma Reagin Syphilis Nonreactive (Nonreactive)
[2024-09-30] MEDS: trazodone 50 mg Tablet PO (20:11)
[2024-09-30] MEDS: hyDROXYzine 25 mg Capsule 50 MG PO (20:11)
[2024-09-30] MEDS: lamoTRIgine 100 mg Tablet PO (20:11)
[2024-09-30] MEDS: ARIPiprazole 10 mg Tablet 15 MG PO (20:11)
[2024-09-30 20:12] VITALS: BP 96/55; PULSE 72; RESP 18; TEMP 36.5; O2SAT 95
[2024-09-30 20:18] LABS: Glucose Point of Care 234 mg/dL (70-110)
[2024-09-30 20:59] LABS: Amphetamines Screen Urine Negative (Negative); Barbiturates Screen Urine Negative (Negative); Benzodiazepines Screen Urine Negative (Negative); Cocaine Screen Urine Negative (Negative); Opiate Screen Urine Negative (Negative); PCP Screen Urine Negative (Negative); THC Screen Urine Negative (Negative)
[2024-10-01 06:00] VITALS: BP 170/93; PULSE 71; RESP 18; O2SAT 96
[2024-10-01 07:17] LABS: Glucose Point of Care 129 mg/dL (70-110)
[2024-10-01 07:17] LABS: Glucose Point of Care 142 mg/dL (70-110)
[2024-10-01] MEDS: hyDRALAzine 10 mg Tablet PO ×2 (08:41→14:10)
[2024-10-01] MEDS: pantoprazole DR 40 mg Tablet PO (08:41)
[2024-10-01] MEDS: cholecalciferol (vitamin D3) 1,000 unit Tablet 1000 UNIT PO (08:42)
[2024-10-01] MEDS: magnesium oxide 400 mg tablet PO (08:42)
[2024-10-01] MEDS: hydroCHLOROthiazide 25 mg Tablet PO (08:42)
[2024-10-01] MEDS: aspirin 81 mg EC Tablet PO (08:42)
[2024-10-01] MEDS: cyanocobalamin 1,000 mcg Tablet 1000 MCG PO (08:42)
[2024-10-01] MEDS: losartan 50 mg Tablet 100 MG PO (08:42)
[2024-10-01] MEDS: isosorbide mononitrate 20 mg Tablet PO (08:42)
[2024-10-01] MEDS: insulin lispro 100 unit/1 mL SUBCUT ×2 (08:43→11:04)
[2024-10-01] MEDS: sertraline 100 mg Tablet 200 MG PO (08:45)
[2024-10-01] MEDS: NON-FORMULARY MEDICATION (Empagliflozin 25 mg Tablet) 12.5 EACH PO (09:19)
--- NOTE | 2024-10-01 11:02 | PC.NURSE ---
B12 LEVEL ELEVATED TO 1543, NEW ORDERS RECEIVED FROM DR. LOPEZ TO DECREASE B12 TO 500 MCG'S DAILY. ORDERS PLACED.
[2024-10-01 11:07] LABS: Glucose Point of Care 166 mg/dL (70-110)
--- NOTE | 2024-10-01 11:49 | DCPLANNER ---
IMM completed 10/01/2024 @ 1112. Pt was given a copy of rights and he stated he understood his rights.
--- NOTE | 2024-10-01 11:59 | P.NPUDS_ITS ---
Diagnoses at Discharge Discharge Diagnosis (1) Bipolar disorder: Status: Acute Qualifiers: Active/Remission status: remission status unspecified Qualified Code(s): F31.9 - Bipolar disorder, unspecified (2) Acute psychosis: Status: Acute (3) Depression: Status: Acute (4) Hypertension: Status: Acute (5) Type 2 diabetes mellitus: Status: Acute (6) Parkinson's disease (tremor, stiffness, slow motion, unstable posture): Status: Acute Reason for Visit Reason for Visit: va sent, confusion, hallucinations Involuntary Hold Information Hold Status: Date/Time Hold Expires: VOLUNTARY Mental Status Exam MSE Comments: Patient is a casually dressed white male who appeared his stated age with fair hygiene and the slow steady gait with some perceivable shuffling noted and limited arm swinging. A prominent intention tremor was noted on examination. There was some evidence of bradykinesia. His mood was described as okay. His affect appeared restricted in range. Speech was monotone in quality, steady in rate and normal in volume. There was no evidence of any psychomotor agitation or psychomotor retardation. His thought process was linear logical and goal-directed. His thought content showed no evidence of homicidal or suicidal ideation. Today he denied any perceptual disturbances and noticing any people backing up trucks to his window and or other clearly perceptual disturbances . He did not appear to be responding to internal stimuli. There was no evidence of mild paranoia and ideas of reference. He was alert and oriented to person, year, month, day of the week, but not date. He was oriented to place and name and situation. Past presidents was grossly intact. Recent and remote memory appeared grossly intact. His insight is poor. His judgment is poor. His impulse control appeared fair. Discharge Data Studies Completed and Pending: Completed Studies During Hospitalization Category Date Time Status CT head wo con* [id number] Stat Cat Scan 09/21/24 13:54 Completed XR chest 1V higinio ble [id number] Stat Exams 09/21/24 15:26 Completed Radiology Impressions Head CT 09/21/24 13:54 IMPRESSION: 1. No acute intracranial hemorrhage or edema. 2. Mild atrophy and small vessel diseas e. Chest X-Ray 09/21/24 15:26 IMPRESSION: No acute findings. Laboratory Results WBC 8.59 10^3/uL (3.2 9-11.43) 09/24/24 08:30 RBC 4.76 10^6/uL (3.8 5-5.65) 09/24/24 08:30 Hgb 14.40 g/dL (11.27 -16.99) 09/24/24 08:30 Hct 44.3 % (37-53) 09/24/24 08:30 MCV 93.1 fl (82-101) 09/24/24 08:30 MCH 30.3 pg (27-33) 09/24/24 08:30 MCHC 32.5 g/dL (30-55) 09/24/24 08:30 RDW 13.4 % (12.1-15.1 ) 09/24/24 08:30 Plt Count 220 10^3/cmm (157 -399) 09/24/24 08:30 MPV 9.5 fL (7.4-10.4) 09/24/24 08:30 Neut % (Auto) 58.7 % 09/24/24 08:30 Lymph % (Auto) 29.0 % 09/24/24 08:30 Sabine % (Auto) 7.6 % 09/24/24 08:30 Eos % (Auto) 3.4 % 09/24/24 08:30 Baso % (Auto) 0.8 % 09/24/24 08:30 Neut # (Auto) 5.05 10^3/uL (1.8 -7.7) 09/24/24 08:30 Lymph # (Auto) 2.5 10^3/uL (0.8- 4.8) 09/24/24 08:30 Sabine # (Auto) 0.7 10^3/uL (0.2- 0.9) 09/24/24 08:30 Eos # (Auto) 0.3 10^3/uL (0.0- 0.8) 09/24/24 08:30 Baso # (Auto) 0.1 10^3/uL (0.0- 0.1) 09/24/24 08:30 Nucleated RBC % (a uto) 0 % 09/24/24 08:30 Nucleated RBCs # 0.0 /100WBC 09/24/24 08:30 Sodium 135 mmol/L (136-1 45) L 09/24/24 08:30 Potassium 4.0 mmol/L (3.5-5 .1) 09/24/24 08:30 Chloride 98 mmol/L (98-107 ) 09/24/24 08:30 Carbon Dioxide 25 mmol/L (22-29) 09/24/24 08:30 Anion Gap 16.0 (5-19) 09/24/24 08:30 BUN 34 mg/dL (8-23) H 09/24/24 08:30 Creatinine 1.3 mg/dL (0.7-1. 2) H 09/24/24 08:30 GFR Calculation 55.1 mL/min (90-1 30) L 09/24/24 08:30 Glucose 305 mg/dL (65-115 ) H 09/24/24 08:30 POC Glucose 166 mg/dL (70-110 ) H 10/01/24 11:01 Calculated Osmolal ity 299 mOsm/kg (285- 295) H 09/24/24 08:30 Calcium 9.5 mg/dL (8.5-10 .5) 09/24/24 08:30 Magnesium 2.3 mg/dL (1.7-2. 3) 09/24/24 08:30 Total Bilirubin 0.3 mg/dL (0.15-1 .2) 09/21/24 14:03 AST 22 U/L (0-40) 09/21/24 14:03 ALT 20 U/L (0-41) 09/21/24 14:03 Alkaline Phosphata se 111 U/L (40-130) 09/21/24 14:03 Total Protein 7.2 g/dL (6.6-8.7 ) 09/21/24 14:03 Albumin 3.9 g/dL (3.5-5.2 ) 09/21/24 14:03 Globulin 3.3 g/dL (1.3-4.6 ) 09/21/24 14:03 Vitamin B12 1543 pg/mL (232-1 245) H 09/30/24 17:05 Folate > 20.0 ng/mL (4.5 -32.2) 09/30/24 17:05 TSH 1.93 uIU/mL (0.27 -4.20) 09/30/24 17:05 Free T4 1.44 ng/dL (0.82- 1.77) 09/30/24 17:05 Urine Color Yellow (Yellow) 09/21/24 14:18 Urine Appearance Clear (CLEAR) 09/21/24 14:18 Urine pH 7.0 (5-7) 09/21/24 14:18 Ur Specific Gravit y 1.024 (1.005-1.0 30) 09/21/24 14:18 Urine Protein 2+ (Negative) A 09/21/24 14:18 Urine Glucose (UA) 3+ (Normal) H 09/21/24 14:18 Urine Ketones Negative (Negati ve) 09/21/24 14:18 Urine Blood Negative (Negati ve) 09/21/24 14:18 Urine Nitrate Negative (Negati ve) 09/21/24 14:18 Urine Bilirubin Negative (Negati ve) 09/21/24 14:18 Urine Urobilinogen 1.0 mg/dL (Negati ve) 09/21/24 14:18 Ur Leukocyte Ellen ase Negative (Negati ve) 09/21/24 14:18 Urine RBC 0-2 /hpf (0-2) 09/21/24 14:18 Urine WBC 0-5 /hpf (0-5) 09/21/24 14:18 Ur Squamous Epith Cells 0-5 /hpf (0-5) 09/21/24 14:18 Amorphous Sediment Not Reportable 09/21/24 14:18 Urine Bacteria None seen /hpf (N ONE) 09/21/24 14:18 Hyaline Casts 0.40 /lpf 09/21/24 14:18 Salicylates 1.4 mg/dL (3-10) L 09/21/24 14:03 Urine Opiates Scre en Negative ng/mL (N egative) 09/30/24 19:30 Acetaminophen < 5.0 ug/mL (10-3 0) L 09/21/24 14:03 Ur Barbiturates Sc reen Negative ng/mL (N egative) 09/30/24 19:30 Ur Phencyclidine S crn Negative ng/mL (N egative) 09/30/24 19:30 Ur Amphetamines Sc reen Negative ng/mL (N egative) 09/30/24 19:30 U Benzodiazepines Scrn Negative ng/mL (N egative) 09/30/24 19:30 Urine Cocaine Scre en Negative ng/mL (N egative) 09/30/24 19:30 U Marijuana (THC) Screen Negative ng/mL (N egative) 09/30/24 19:30 Ethyl Alcohol < 10 mg/dL (0-10) 09/21/24 14:03 RPR Nonreactive (Non reactive) 09/30/24 17:05 HIV 1&2 Ab & HIV 1 Ag Non-reactive (No n-Reactiv) 09/30/24 17:05 HIV 1&2 Antibody Non-reactive (No n-Reactiv) 09/30/24 17:05 Influenza A (PCR) Negative (Negati ve) 09/21/24 15:35 Influenza Type B ( PCR) Negative (Negati ve) 09/21/24 15:35 RSV (PCR) Negative (Negati ve) 09/21/24 15:35 SARS-CoV-2 (PCR) Negative (Negati ve) 09/21/24 15:35 Vitals: Last Vital Signs Temp 97.7 F 09/30/24 20:12 Pulse 71 10/01/24 06:00 Resp 18 10/01/24 06:00 BP 170/93 10/01/24 06:00 Pulse Ox 96 10/01/24 06:00 O2 Del Method Room Air 09/30/24 14:00 Discharge Plan Discharge Patient Disposition: Home Condition: Stable Prescriptions: New aripiprazole 10 mg Tablet 15 mg PO BEDTIME 30 Days Qty: 45 1RF hydralazine 10 mg Tablet 10 mg PO TID 30 Days Qty: 90 1RF trazodone 50 mg Tablet 50 mg PO BEDTIME PRN (Reason: Sleep) 30 Days Qty: 30 1RF isosorbide mononitrate 20 mg Tablet 20 mg PO BID 30 Days Qty: 60 1RF hydrochlorothiazide 25 mg Tablet 25 mg PO DAILY 30 Days Qty: 30 1RF hydroxyzine pamoate 25 mg Capsule 50 mg PO Q6H PRN (Reason: Anxiety) 30 Days Qty: 120 1RF Continued atorvastatin 80 mg Tablet 40 mg PO QPM lamotrigine 200 mg Tablet 100 mg PO BEDTIME aspirin 81 mg Tablet,Delayed Release (Dr/Ec) 81 mg PO QAM losartan 100 mg Tablet 100 mg PO QAM magnesium 200 mg Tablet 400 mg PO DAILY cinnamon bark [Cinnamon] 500 mg Capsule 1,000 mg PO DAILY cholecalciferol (vitamin D3) [Vitamin D3] 25 mcg (1,000 unit) Tablet 25 mcg PO QAM Centrum Silver Men [id number] mcg Tablet 1 tab PO QAM empagliflozin 25 mg Tablet 12.5 mg PO QAM Changed cyanocobalamin (vitamin B-12) [Vitamin B-12] 1,000 mcg Tablet 500 mcg PO QAM 30 Days Qty: 15 1RF Discontinued aripiprazole 10 mg Tablet 5 mg PO BEDTIME No Action tamsulosin 0.4 mg Capsule 0.4 mg PO QPM testosterone [AndroGel] 12.5 mg/ 1.25 gram (1 %) Gel In Metered-Dose Pump 42 pump TRANSDERMAL DAILY sertraline [Zoloft] 100 mg Tablet 200 mg PO QAM omeprazole 20 mg Capsule,Delayed Release(Dr/Ec) 20 mg PO BID Ozempic 0.25 mg or 0.5 mg (2 mg/3 mL) Pen Injector 0.25 mg SUBCUT Q7D Discharge Orders: Discharge Order (Routine); Ordered 10/01/24 Ordered By: Viraj Salvador Referrals: Maria Del Rosario Olmos MD [Primary Care Provider] - Discharge Diet: Diabetic Discharge Activity: Resume usual activity Patient Instructions: Opioid Safety Discharge Attestations NPU Time Spent in Discharge Care*: less than 30 min Specific Discharge Activities: Specific discharge activities: educating patient, discussing with nurse outreach case manager/social workers/dc planners, documenting/other paperwork and evaluating patient/reviewing data Coding Level of Care Code Acute Code for [facility] Fwd Diagnoses Bipolar disorder F31.9 Active/Remission status: remission status unspecified Acute psychosis F23 Depression F32.A Hypertension I10 Type 2 diabetes mellitus E11.9 Parkinson's disease (tremor, stiffness, slow motion, unstable posture) G20.A1
[2024-10-01 12:23] VITALS: BP 170/93; PULSE 71; RESP 18; O2SAT 96
== END 2024-10-01 14:30 | disposition home or self-care (01) | DRG 885 ==
LOC: ER 17:04 → NP 17:17
PROVIDERS: Internal Medicine; Admitting Provider Psychiatry & Neurology Psychiatry; Emergency Provider Emergency Medicine; PCP Family Medicine; Visit Provider Psychiatry & Neurology Psychiatry
DX: F23 Brief psychotic disorder (principal); G20.A1 Parkinson's disease without dyskinesia, without mention of fluctuations; E11.9 Type 2 diabetes mellitus without complications; Z79.85 Long-term (current) use of injectable non-insulin antidiabetic drugs; I10 Essential (primary) hypertension; F32.A Depression, unspecified; Z79.82 Long term (current) use of aspirin; Z62.810 Personal history of physical and sexual abuse in childhood
CPT/HCPCS: 36415; 36416; 70450; 71045; 80048; 80053; 80306; 80307; 81001; 82607; 82746; 82962; 83735; 84439; 84443; 85025; 86592; 87637; 87806; 96372; 97150; 97165; 97167; 99285; J1815; J9999

== ENCOUNTER 2024-10-14 08:53 | Outpatient (CLI) | payer OTHER, SELFPAY ==
--- NOTE | 2024-10-14 09:00 | MR_ITS ---
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 TECHNIQUE: Multiplanar imaging performed through the brain with MultiHance 20 ml's IV. No acute infarcts are seen. Wolfe-white matter differentiation is well preserved. Mild to moderate symmetric atrophy. Slightly greater atrophy involving the frontal temporal lobes. No obvious progression of atrophy in the medial temporal lobes. There is mild cerebellar atrophy and hippocampal atrophy. Scattered T2 and FLAIR signal hyperintensities are predominantly subcortical consistent with small vessel disease. No prior infarct. No susceptibility artifacts or prior lacunar infarcts. Ventricles and extra-axial spaces are normal. Clivus and pituitary gland are normal. Visualized posterior fossa and brainstem are also normal. Postcontrast images are negative for masses or vascular malformations. Dural venous sinuses are normal. Paranasal sinuses: Well aerated with no significant disease. Mastoid air cells: Normal. Calvarium and scalp: Normal. MR/MR head wo/w con [id number] IMPRESSION: 1. No acute infarct or hemorrhage. 2. Mild to moderate symmetric atrophy, slightly greater involving the frontote mporal lobes. 3. No prior infarct. 4. Minimal small vessel disease. 5. No mass or abnormal enhancement. 6. Mild hippocampal atrophy.
[2024-10-14] MEDS: gadobenate dimeglumine 20 mL vial IV (09:38)
== END 2024-10-14 08:54 | disposition home or self-care (01) ==
PROVIDERS: PCP Family Medicine; Visit Provider Family Medicine
DX: Z01.89 Encounter for other specified special examinations (principal); G31.89 Other specified degenerative diseases of nervous system
CPT/HCPCS: 70553